=== PATIENT | female | born 1965 | race Caucasian/White ===

== ENCOUNTER → 2018-06-03 15:44 | Outpatient (CLI) | payer OTHER, SELFPAY | PROVIDERS: Family Provider Physician Assistant; PCP Physician Assistant; Visit Provider Physician Assistant | DX: J02.9 Acute pharyngitis, unspecified (principal) | CPT/HCPCS: 87070 ==

== ENCOUNTER 2018-06-14 13:48 | Emergency (ER) | payer OTHER, SELFPAY ==
[2018-06-14 13:55] VITALS: BP 148/92; PULSE 71; RESP 24; TEMP 36.4; O2SAT 98
--- NOTE | 2018-06-14 14:12 | DI.RAD.S_ITS ---
PROCEDURE: XR CHEST 2V INDICATIONS: short of breath TECHNIQUE: 2 views of the chest were acquired. COMPARISON: [facility], , CHEST 2 VIEW, 08/08/2015, 13:20. FINDINGS: Surgical changes and devices: None. Lungs and pleura: No pleural effusions or pneumothorax. Lungs are clear. Mediastinum: Mediastinal contours are normal. Heart size is normal. Bones and chest wall: No suspicious bony abnormalities. Soft tissues appear unremarkable. IMPRESSION: No acute cardiopulmonary pathology. Dictated by: Nacho Montano M.D. on 06/14/2018 at 14:34 Approved by: Nacho Montano M.D. on 06/14/2018 at 14:35
--- NOTE | 2018-06-14 14:29 | ED.SOB ---
HPI - SOB/Dyspnea General Chief Complaint: Shortness of Breath/Dyspnea Stated Complaint: SOB, fatigue Time Seen by Provider: 06/14/18 13:54 Source: patient Mode of arrival: ambulatory Limitations: no limitations History of Present Illness patient is a 52-year-old female who presents with shortness of breath. She says she has had increasing shortness of breath with exertion ongoing for the last couple of weeks. Over the last 3 days she says she does has overall body aches and fatigue. She can't get warm she feels like she is chilled. She has a little dizzy and lightheaded when she stands. She has a dry nonproductive cough. She was treated for pharyngitis with amoxicillin and azithromycin about 2 months ago. She had a little bit diarrhea after that but she is with diarrhea his overall stop. As he still has it occasionally it is nonbloody not watery and not daily. She denies nausea or vomiting. She does have some ongoing abdominal discomfort but nothing worse that she has had before. MD Complaint: shortness of breath Context: recent illness Severity: moderate Consistency/Duration: constant Relieving factors: rest Exacerbating factors: exertion Related Data Home Medications Medication Instructions Recorded Confirmed [MULTIVITAMIN] PO QDAY #0 06/09/12 06/03/18 [FISH OIL ] 1,400 mg PO QDAY #0 07/30/12 06/03/18 Lidocaine 5% See Label Instructions .ROUTE 03/09/18 06/03/18 .COMPLEX Previous Rx's Medication Instructions Recorded [BI-EST] 1 ml TOPICAL Q DAY #1 ea 02/28/17 hydrocodone 10 mg-acetaminophen 1 tab PO Q6H #120 tab 05/04/18 325 mg tablet thyroid (pork) 90 mg tablet See Label Instructions PO QDAY #0 05/04/18 tab azithromycin 500 mg tablet See Label Instructions PO .COMPLEX 06/03/18 #3 tab omega-3 acid ethyl esters 1 gram 1 cap PO DAILY #90 cap 06/03/18 capsule varicella-zoster glycoE [id number] 50 mcg IM ONCE #1 each 06/03/18 adj(PF) 50 mcg/0.5 mL IM susp, kit Allergies Allergy/AdvReac Type Severity Reaction Status Date / Time amoxicillin [From Augmentin] AdvReac Intermediate Diarrhea Verified 06/03/18 15:33 clavulanic acid AdvReac Intermediate Diarrhea Verified 06/03/18 15:33 [From Augmentin] Review of Systems Review of Systems All systems reviewed & are unremarkable except as noted in HPI and below Eyes Denies change in vision, Denies eye discharge, Denies irritation and Denies loss of vision Cardiovascular Denies chest pain, Denies irregular heart rhythm, Denies lightheadedness, Denies palpitations, Reports dyspnea and Denies orthopnea Respiratory Reports as per HPI, Reports dyspnea and Denies wheezing Gastrointestinal Gastrointestinal: Denies abdominal pain, Denies change in bowel habits, Denies diarrhea, Denies nausea and Denies vomiting Musculoskeletal Denies back pain, Denies muscle weakness, Denies numbness and Denies tingling Integumentary/Breasts Denies pruritus, Denies erythema, Denies rash and Denies wounds Neurologic Denies loss of vision, Denies numbness and Denies tingling Endocrine Denies palpitations Allergic/Immunologic Denies wheezing [facility] Medical History Hypothyroidism (Chronic 01/13/04) Blindness of one 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) Mixed hyperlipidemia (Chronic 04/16/16) Blind right eye (Chronic Unknown) Chronic constipation (Chronic Unknown) Chronic pelvic pain syndrome in female (Chronic Unknown) Hyperlipemia (Chronic Unknown) Hypothyroidism (Chronic Unknown) Hx of endometriosis (Resolved Unknown) Surgical History Hx of eye surgery (Resolved Unknown) Panora's bands (Resolved Unknown) History of thyroidectomy S/P total abdominal hysterectomy and bilateral salpingo-oophorectomy Status post breast reduction Status post laparoscopy Status post rotator cuff repair Family History Sister History of breast cancer Social History Smoking Status: Never smoker alcohol intake: current (Socially) substance use type: does not use Exam Initial Vital Signs Initial Vital Signs: Vital Signs Temperature 97.6 F 06/14/18 13:55 Pulse Rate 71 06/14/18 13:55 Respiratory Rate 24 06/14/18 13:55 Blood Pressure 148/92 H 06/14/18 13:55 Pulse Oximetry 98 06/14/18 13:55 GENERAL: Well-appearing, well-nourished and in no acute distress. Does not appear pale HEENT: Head atraumatic,EOMI, pupils reactive, face symmetric CARDIOVASCULAR: Regular rate and rhythm without murmurs, rubs or gallops. RESPIRATORY: Breath sounds equal bilaterally, no wheezes rales or rhonchi. ABDOMEN: Soft, nontender. Normoactive bowel sounds all 4 quadrants. No guarding or rebound. EXTREMITIES: Normal range of motion, no clubbing or edema. Neurovascularly intact NEUROLOGICAL: Alert and oriented x4.Normal gait and speech. Cranial nerves II through XII grossly intact. SKIN: Warm, dry, no laceration, no petechiae, no rashes or lesions. Scores PERC Score Age greater than or equal to 50 years: Yes Heart rate greater than or equal to 100 bpm: No Room Air O2 Sat less than 95%: No Unilateral leg swelling: No Recent trauma or surgery: No Hemoptysis: No Prior PE or DVT: No Hormone Use: No Total PERC Score: 1 Course Orders Ordered: ED Orders 06/14/18 14:11 Consult to Respiratory Therapy Evaluate & Treat 06/14/18 14:12 XR chest 2V Stat 06/14/18 14:20 B Type Natriuretic Peptide Stat Complete Blood Count AUTO DIFF Stat Comprehensive Metabolic Panel Stat Partial Thromboplastin Time Stat Prothrombin Time INR Stat Troponin & CK Cardiac Panel Stat 06/14/18 14:31 D Dimer Stat 06/14/18 14:48 Lactate (Lactic Acid) Stat 06/14/18 14:59 Blood Culture Stat 06/14/18 15:10 Influenza A and B by PCR Rapid Stat Discontinued Medications Albuterol (Ventolin Hfa) 2 puff INH NOW ONE Stop: 06/14/18 15:46 Last Admin: 06/14/18 16:37 Dose: 2 inhalation Vital Signs - 8 hr 06/14/18 13:55 06/14/18 16:09 Temperature 97.6 F 99.0 F Pulse Rate 71 66 Respiratory Rate 24 18 Blood Pressure 148/92 H Blood Pressure [Left Arm] 123/71 Pulse Oximetry 98 96 MDM - SOB/Dyspnea Lab Data Attestation: I reviewed the patient's lab results. Result diagrams: 06/14/18 14:20 06/14/18 14:20 Lab Results 12/16/18 12/16/18 12/16/18 Range/Units 14:20 14:20 14:20 WBC 11.2 H (4.5-11.0) X10^3/uL RBC 5.19 (4.0-5.2) X10^6/uL Hgb 15.7 (12.0-16.0) g/dL Hct 45.5 (36-46) % MCV 87.7 (80-100) fL MCH 30.3 (26-34) PG MCHC 34.5 (30-36) % RDW 12.0 (11.6-14.8) % Plt Count 405 H (150-400) X10^3/uL Neut % (Auto) 60.5 (50-75) % Lymph % (Auto) 27.9 (25-40) % [place] % (Auto) 8.8 (3-14) % Eos % (Auto) 1.8 L (2-4) % Baso % (Auto) 1.0 (0-2) % Neut # (Auto) 6700 (4585-4695) /uL PT 10.9 (10.1-12.7) SECONDS INR 1.0 (0.9-1.3) APTT 32 (26.4-36.2) SECONDS D-Dimer (<230) ng/mL Sodium 142 (137-145) mmol/L Potassium 4.0 (3.4-5.1) mmol/L Chloride 101 (98-107) mmol/L Carbon Dioxide 22 (22-32) mmol/L BUN 11 (7-17) mg/dL Creatinine 0.80 (0.52-1.04) mg/dL Estimated GFR > 60.0 (>60) mL/min BUN/Creatinine Ratio 13.8 (6-22) Glucose 80 (70-100) mg/dL Lactate (0.7-2.1) mmol/L Calcium 10.2 (8.4-10.2) mg/dL Total Bilirubin 1.2 (0.2-1.3) mg/dL AST 34 (14-36) IU/L ALT 40 (9-52) IU/L Alkaline Phosphatase 57 (38-126) U/L Total Creatine Kinase 60 (30-135) U/L CK-MB (CK-2) TNP CK-MB (CK-2) Rel Index TNP Troponin I < 0.012 (0.01-0.034) ng/mL B-Natriuretic Peptide 35.6 (<100) Total Protein 8.7 H (6.3-8.2) g/dL Albumin 4.9 (3.5-5.0) g/dL Globulin 3.8 (1.7-4.1) g/dL Albumin/Globulin Ratio 1.3 (1.0-2.8) Influenza A & B (PCR) (Negative) 06/14/18 06/14/18 06/14/18 Range/Units 14:31 14:48 15:10 WBC (4.5-11.0) X10^3/uL RBC (4.0-5.2) X10^6/uL Hgb (12.0-16.0) g/dL Hct (36-46) % MCV (80-100) fL MCH (26-34) PG MCHC (30-36) % RDW (11.6-14.8) % Plt Count (150-400) X10^3/uL Neut % (Auto) (50-75) % Lymph % (Auto) (25-40) % [place] % (Auto) (3-14) % Eos % (Auto) (2-4) % Baso % (Auto) (0-2) % Neut # (Auto) (0029-4814) /uL PT (10.1-12.7) SECONDS INR (0.9-1.3) APTT (26.4-36.2) SECONDS D-Dimer < 200 (<230) ng/mL Sodium (137-145) mmol/L Potassium (3.4-5.1) mmol/L Chloride (98-107) mmol/L Carbon Dioxide (22-32) mmol/L BUN (7-17) mg/dL Creatinine (0.52-1.04) mg/dL Estimated GFR (>60) mL/min BUN/Creatinine Ratio (6-22) Glucose (70-100) mg/dL Lactate 1.3 (0.7-2.1) mmol/L Calcium (8.4-10.2) mg/dL Total Bilirubin (0.2-1.3) mg/dL AST (14-36) IU/L ALT (9-52) IU/L Alkaline Phosphatase (38-126) U/L Total Creatine Kinase (30-135) U/L CK-MB (CK-2) CK-MB (CK-2) Rel Index Troponin I (0.01-0.034) ng/mL B-Natriuretic Peptide (<100) Total Protein (6.3-8.2) g/dL Albumin (3.5-5.0) g/dL Globulin (1.7-4.1) g/dL Albumin/Globulin Ratio (1.0-2.8) Influenza A & B (PCR) Negative (Negative) Urine Dip Bedside Urine Glucose Negative Bedside Urine Bilirubin - Negative Bedside Urine Ketone - Negative Urine Specific [place] 1.020 Bedside Urine Occult Blood - Negative Bedside Urine pH 6.0 Bedside Urine Protein - Negative Bedside Urine Urobilinogen - Negative Bedside Urine Nitrite - Negative Bedside Urine Leukocytes - Negative Esterase Imaging Data Chest x-ray: Attestation: I personally reviewed and interpreted this imaging study as follows: My impression: negative Radiologist's impression: PROCEDURE: XR CHEST 2V INDICATIONS: short of breath TECHNIQUE: 2 views of the chest were acquired. COMPARISON: [facility], CHEST 2 VIEW, 08/08/2015, 13:20. FINDINGS: Surgical changes and devices: None. Lungs and pleura: No pleural effusions or pneumothorax. Lungs are clear. Mediastinum: Mediastinal contours are normal. Heart size is normal. Bones and chest wall: No suspicious bony abnormalities. Soft tissues appear unremarkable. IMPRESSION: No acute cardiopulmonary pathology. Dictated by: Nacho Montano M.D. on 06/14/2018 at 14:34 ECG Data Attestation: I personally reviewed and interpreted this ECG as follows: Prior ECG tracings: not available for review Interpretation: Normal sinus rhythm rate [address] changes no T-wave inversions MDM Narrative Medical decision making narrative: Patient is not hypoxic low risk for PE. D-dimer negative. Shortness of breath with exertion possible bronchospasm. Also she was treated twice for likely a viral pharyngitis. Possibly left over viral syndrome. She is not appear toxic she is not requiring oxygen. She is not dyspneic. She did get albuterol and spacer teaching. At this time no cause of hypoxia found recommend outpatient follow-up. Discharge Plan Departure Patient Disposition: Home Clinical Impression: Acute viral syndrome Discharge Date/Time: 06/14/18 16:51 Interventions: ED Discharge Assessment Last Done: 06/14/18 16:51 Instructions: DI for Viral Syndrome Activity Restrictions/Additional Instructions: *You have been diagnosed with viral syndrome *What to do: At this time blood work is reassuring no need for antibiotics chest x-ray does not show any pneumonia influenza is negative. Urine not anemic. Recommend rest and hydrating. *Continue to take medications as directed Albuterol 1-2 puffs every 4 hr if needed for shortness of breath use with spacer *Follow up with your primary care provider in 2-3 days *Return to ER if you should have increasing shortness of breath, chest tightness or any new, worsening or concerning symptoms Prescriptions: No Action Lidocaine 5% ointment See Patient Comments .ROUTE .COMPLEX RF: 0 omega-3 acid ethyl esters [Lovaza] 1 gram capsule 1 cap PO DAILY Qty: 90 RF: 3 varicella-zoster [id number] (PF) [Shingrix (PF)] 50 mcg/0.5 mL suspension for reconstitution 50 mcg IM ONCE Qty: 1 RF: 1 azithromycin 500 mg tablet See Label Instructions PO .COMPLEX Qty: 3 RF: 0 [MULTIVITAMIN] PO QDAY Qty: 0 RF: 0 [FISH OIL ] 1,400 mg PO QDAY Qty: 0 RF: 0 [BI-EST] 1 ml Topical Q DAY Qty: 1 RF: 11 thyroid (pork) [[place] Thyroid] 90 mg tablet See Label Instructions PO QDAY Qty: 0 RF: 1 hydrocodone-acetaminophen 10-325 mg tablet 1 tab PO Q6H Qty: 120 RF: 0 Referrals: Aparna Huber PA-C [Primary Care Provider] -
[2018-06-14 14:38] LABS: Add Manual Diff / Slide Review NO; Eosinophils Percent Auto 1.8 % (2-4); Hematocrit 45.5 % (36-46); Hemoglobin 15.7 g/dL (12.0-16.0); Lymphocytes Percent Auto 27.9 % (25-40); Mean Corpuscular HGB Conc 34.5 % (30-36); Mean Corpuscular Hemoglobin 30.3 PG (26-34); Mean Corpuscular Volume 87.7 fL (80-100); Monocytes Percent Auto 8.8 % (3-14); Neutrophils Absolute Auto 6700 /uL (1500-7000); Neutrophils Percent Auto 60.5 % (50-75); Platelet Count 405 X10^3/uL (150-400); Prothrombin Time 10.9 SECONDS (10.1-12.7); Red Blood Cell Count 5.19 X10^6/uL (4.0-5.2); White Blood Cell Count 11.2 X10^3/uL (4.5-11.0)
[2018-06-14 14:40] LABS: PTT Partial Thromboplastin Tim 32 SECONDS (26.4-36.2)
[2018-06-14 14:48] LABS: Alanine Aminotransferase 40 IU/L (9-52); Albumin 4.9 g/dL (3.5-5.0); Albumin Globulin Ratio 1.3 (1.0-2.8); Alkaline Phosphatase 57 U/L (38-126); Aspartate Aminotransferase 34 IU/L (14-36); BUN Creatinine Ratio 13.8 (6-22); Bilirubin Total 1.2 mg/dL (0.2-1.3); Blood Urea Nitrogen 11 mg/dL (7-17); Calcium 10.2 mg/dL (8.4-10.2); Carbon Dioxide 22 mmol/L (22-32); Chloride 101 mmol/L (98-107); Creatine Kinase 60 U/L (30-135); Estimated Glomerular Filt Rate > 60.0 mL/min (>60); Globulin 3.8 g/dL (1.7-4.1); Glucose 80 mg/dL (70-100); HEMOLYSIS < 15 (0-50); Sodium 142 mmol/L (137-145); Total Protein 8.7 g/dL (6.3-8.2)
[2018-06-14 14:49] LABS: D Dimer < 200 ng/mL (<230)
[2018-06-14 14:58] LABS: B Type Natriuretic Peptide 35.6 (<100)
[2018-06-14 15:00] LABS: Troponin I < 0.012 ng/mL (0.01-0.034)
[2018-06-14 15:09] LABS: Lactate (Lactic Acid) 1.3 mmol/L (0.7-2.1)
[2018-06-14 15:36] LABS: Influenza A and B by PCR Rapid Negative (Negative)
[2018-06-14 16:09] VITALS: BP 123/71; PULSE 66; RESP 18; TEMP 37.2; O2SAT 96
[2018-06-14] MEDS: ALBUTEROL HFA 60 PUFF/8 GM INH INH (16:37)
== END 2018-06-14 16:51 | disposition home or self-care (01) ==
PROVIDERS: Emergency Provider Emergency Medicine; Family Provider Physician Assistant; PCP Physician Assistant
DX: B34.9 Viral infection, unspecified (principal)
CPT/HCPCS: 36415; 36591; 71046; 80053; 81003; 82550; 83605; 83880; 84484; 85025; 85379; 85610; 85730; 87040; 87400; 93005; 99283; 99285

== ENCOUNTER → 2018-06-17 14:20 | Outpatient (CLI) | payer OTHER, SELFPAY ==
[2018-06-17 14:48] LABS: Monotest Negative (Negative)
== END ==
PROVIDERS: Family Provider Physician Assistant; PCP Physician Assistant; Visit Provider Physician Assistant
DX: R05 Cough (principal); R53.83 Other fatigue
CPT/HCPCS: 36415; 86318

== ENCOUNTER → 2023-04-28 12:25 | Outpatient (CLI) | payer OTHER, SELFPAY ==
--- NOTE | 2023-04-28 12:27 | DI.RAD.S_ITS ---
PROCEDURE: XR FOOT LT MIN 3V INDICATIONS: Left heel tender/pain stepped on rock 5wk HOME SPECIALIST TECHNIQUE: 3 views of the foot were acquired. COMPARISON: None. FINDINGS: Bones: No fractures or dislocations. No suspicious bony lesions. 1st MTP degenerative change. Plantar calcaneal spur. Soft tissues: No tibiotalar joint effusion. Achilles tendon appears normal. IMPRESSION: No acute bony abnormality. Dictated by: Ezra Reece M.D. on 04/28/2023 at 12:58 Approved by: Ezra Reece M.D. on 04/28/2023 at 13:03
== END ==
PROVIDERS: Family Provider Physician Assistant; PCP Physician Assistant; Referring Provider Student in an Organized Health Care Education/Training Program; Visit Provider Student in an Organized Health Care Education/Training Program
DX: M79.672 Pain in left foot (principal)
CPT/HCPCS: 73630

== ENCOUNTER 2023-07-28 16:47 | Emergency (ER) | payer OTHER, SELFPAY ==
[2023-07-28 16:59] VITALS: BP 131/88; PULSE 96; RESP 22; TEMP 36.1; O2SAT 98; BMI 27.3
[2023-07-28] MEDS: ONDANSETRON 4 MG/2 ML INJ IV ×2 (17:17→21:08)
[2023-07-28 17:25] LABS: Add Manual Diff / Slide Review NO; Basophils Absolute Auto 100 /uL (0-100); Basophils Percent Auto 0.9 % (0-2); Eosinophils Absolute Auto 200 /uL (0-450); Eosinophils Percent Auto 1.9 % (2-4); Hematocrit 47.5 % (36-46); Hemoglobin 16.2 g/dL (12.0-16.0); Lymphocytes Absolute Auto 2800 /uL (1100-4500); Lymphocytes Percent Auto 30.6 % (25-40); Mean Corpuscular HGB Conc 34.1 % (30-36); Mean Corpuscular Hemoglobin 29.9 PG (26-34); Mean Corpuscular Volume 87.6 fL (80-100); Monocytes Absolute Auto 1000 /uL (0-900); Monocytes Percent Auto 10.9 % (3-14); Neutrophils Absolute Auto 5100 /uL (1500-7000); Neutrophils Percent Auto 55.7 % (50-75); Platelet Count 428 X10^3/uL (150-400); Red Blood Cell Count 5.42 X10^6/uL (4.0-5.2); Red Cell Distribution Width 13.1 % (11.6-14.8); White Blood Cell Count 9.1 X10^3/uL (4.5-11.0)
[2023-07-28 17:32] LABS: Alanine Aminotransferase 62 IU/L (<35); Albumin 4.9 g/dL (3.5-5.0); Albumin Globulin Ratio 1.3 (1.0-2.8); Alkaline Phosphatase 102 U/L (38-126); Aspartate Aminotransferase 55 IU/L (14-36); BUN Creatinine Ratio 14.7 (6-22); Bilirubin Total 1.3 mg/dL (0.2-1.3); Blood Urea Nitrogen 15 mg/dL (7-17); Calcium 10.7 mg/dL (8.4-10.2); Carbon Dioxide 27 mmol/L (22-32); Chloride 100 mmol/L (98-107); Estimated Glomerular Filt Rate > 60 mL/min (>60); Globulin 3.8 g/dL (1.7-4.1); Glucose 102 mg/dL (70-100); HEMOLYSIS < 15 (0-50); Lipase 263 U/L (23-300); Potassium 3.6 mmol/L (3.4-5.1); Sodium 138 mmol/L (137-145); Total Protein 8.7 g/dL (6.3-8.2)
[2023-07-28 18:07] LABS: Urine Volume 10mL (spun)
[2023-07-28 18:08] LABS: Bacteria Urine Moderate (10-30); RBC Urine 0-1/HPF (0-5/HPF); Squamous Epithelial Cell Urine 1-5 /HPF (0-5/HPF); WBC Urine 5-10/HPF (0-5/HPF)
--- NOTE | 2023-07-28 22:42 | DI.CT.S_ITS ---
PROCEDURE: CT ABDOMEN PELVIS W CON INDICATIONS: nausea/pain x 5 weeks, hx malrotation? TECHNIQUE: After the administration of intravenous contrast, axial sections acquired from the lung bases to the pubic symphysis. Coronal and sagittal reformats were performed. For radiation dose reduction, the following was used: automated exposure control, adjustment of mA and/or kV according to patient size. COMPARISON: [facility], CT, ABDOMEN/PELVIS WITH CONTRAST, 01/20/2017, 10:57. FINDINGS: Image quality: Diagnostic. Lower Chest: Small hiatal hernia. ABDOMEN: Liver: No solid mass. Hepatic steatosis. Gallbladder: No radiopaque gallstones or wall thickening. Biliary ducts: No biliary dilation. Pancreas: No ductal dilation. Spleen: Size is within normal limits. Adrenal Glands: No adrenal nodules. Kidneys and Ureters: No hydronephrosis. No solid mass. No complex renal cystic lesion which requires follow up. Stomach and Bowel: Normal colonic caliber, without significant wall thickening. The duodenum does not cross midline, consistent with malrotation. No volvulus. Additionally, there is no small bowel in the left abdomen. Peritoneum: No abnormal intraperitoneal fluid. No free air. Ventral Wall: No hernia. Abdominal Nodes: No retroperitoneal or mesenteric adenopathy by size criteria. Vessels: Aorta and inferior vena cava are normal in size. PELVIS: Pelvic Organs: Unremarkable. Bladder: Unremarkable. Pelvic Nodes: No enlarged lymph nodes. Miscellaneous: No inguinal hernias are seen. Bones: No aggressive osseous abnormality. IMPRESSION: Malrotation without volvulus. Moderate hepatic steatosis. Dictated by: Kulwant Hughes M.D. on 07/28/2023 at 23:08 Approved by: Kulwant Hughes M.D. on 07/28/2023 at 23:10
[2023-07-28 23:00] VITALS: BP 157/70; PULSE 66; O2SAT 98
[2023-07-28] MEDS: SODIUM CHLORIDE 0.9% 1,000 ML 1000 ML IV (23:01)
--- NOTE | 2023-07-28 23:04 | ED.ABDPAIN ---
HPI - Abdominal Pain General Chief Complaint: Abdominal Pain Stated Complaint: N/Abd bloating Time Seen by Provider: 07/28/23 22:37 Source: patient Mode of arrival: Ambulatory History of Present Illness HPI narrative: Patient is a 57-year-old female history of multiple abdominal surgeries, thyroid, chronic right eye issue, presents today with ongoing abdominal discomfort and nausea. She reports it has been going on about month. She has a history of some sort of malrotated gut. She reports that she is feeling more constipated lately but is still passing gas. She is significant decrease in appetite but has not really lost any weight. She is staying hydrated. No fever chills chest pain or passing out. Related Data Home Medications Medication Instructions Recorded Confirmed [MULTIVITAMIN] PO QDAY ##0 06/09/12 07/06/23 estradiol 10 mcg vaginal tablet 10 mcg vaginal 2XW 07/01/18 07/06/23 (Yuvafem) norethindrone acetate 5 mg tablet 5 mg PO DAILY 07/01/18 07/06/23 Previous Rx's Medication Instructions Recorded omega-3 acid ethyl esters 1 gram 1 cap PO DAILY #90 caps 06/03/18 capsule (Lovaza) thyroid (pork) 90 mg tablet 90 mg PO QDAY #45 tabs 01/14/19 ([place] Thyroid) ondansetron 4 mg disintegrating 4 mg PO Q6H PRN nausea and 07/06/23 tablet vomiting #10 tabs ondansetron 4 mg disintegrating 4 mg PO Q8H PRN nausea and 07/28/23 tablet vomiting #20 tabs Allergies Allergy/AdvReac Type Severity Reaction Status Date / Time amoxicillin [From Augmentin] AdvReac Intermediate Diarrhea Verified 07/06/23 10:33 clavulanic acid AdvReac Intermediate Diarrhea Verified 07/06/23 10:33 [From Augmentin] Review of Systems Review of Systems ROS Unobtainable: All systems reviewed & are unremarkable except as noted in HPI and below Patient History Medical History (Updated 07/28/23 @ 23:35 by Olga Harris DO) Chronic constipation (Unknown) Blind right eye (Unknown) Hyperlipemia (Unknown) Hypothyroidism (Unknown) Chronic pelvic pain syndrome in female (Unknown) Hx of endometriosis (Unknown) Mixed hyperlipidemia (04/16/16) Blindness of one eye (11/13/10) Hypothyroidism (01/13/04) Surgical History Kaveh's bands (Unknown) Hx of eye surgery (Unknown) Status post rotator cuff repair Status post laparoscopy Status post breast reduction S/P total abdominal hysterectomy and bilateral salpingo-oophorectomy History of thyroidectomy Family History Sister History of breast cancer Social History Smoking Status: Never smoker second hand exposure: No alcohol intake: current substance use type: does not use Smoking Status: Never smoker alcohol intake frequency: holidays/special occasions only Substance Use Type: does not use and marijuana Exam Initial Vital Signs Initial Vital Signs: Vital Signs Temperature 97 F L 07/28/23 16:59 Pulse Rate 96 H 07/28/23 16:59 Respiratory Rate 22 07/28/23 16:59 Blood Pressure 131/88 07/28/23 16:59 Pulse Oximetry 98 07/28/23 16:59 Oxygen Delivery Method Room Air 07/28/23 16:59 GENERAL: Alert 49-year-old female HEENT: Head atraumatic,EOMI, pupils reactive, face symmetric, moist mucous membranes CARDIOVASCULAR: Regular rate and rhythm without murmurs, rubs or gallops. RESPIRATORY: Breath sounds equal bilaterally, no wheezes rales or rhonchi. ABDOMEN: Soft, nontender. Normoactive bowel sounds all 4 quadrants. No guarding or rebound. EXTREMITIES: Normal range of motion, no clubbing or edema. Neurovascularly intact NEUROLOGICAL: Alert and oriented x4.Normal gait and speech. SKIN: Warm, dry, no laceration, no petechiae, no rashes or lesions. Course Orders Ordered: ED Orders 07/28/23 22:42 CT abdomen pelvis w con Stat Discontinued Medications Sodium Chloride (Normal Saline 0.9%) 1,000 mls @ 1,000 mls/hr IV BOLUS ONE Stop: 07/28/23 23:41 Last Admin: 07/28/23 23:01 Dose: 1,000 mls/hr Documented By: DOROTHY Ondansetron HCl (Ondansetron 4 Mg/2 Ml Inj) 4 mg IV NOW PRN PRN Reason: Nausea And Vomiting Last Admin: 07/28/23 17:17 Dose: 4 mg Documented By: ADELE Ondansetron HCl (Ondansetron 4 Mg Odt) 4 mg PO NOW PRN PRN Reason: Nausea And Vomiting Ondansetron HCl (Ondansetron 4 Mg/2 Ml Inj) 4 mg IV NOW ONE Stop: 07/28/23 21:05 Last Admin: 07/28/23 21:08 Dose: 4 mg Documented By: DOROTHY Vital Signs Vital signs: Vital Signs - 8 hr 07/28/23 23:00 07/28/23 23:00 07/28/23 23:30 Pulse Rate 66 69 Blood Pressure 157/70 H 140/68 Pulse Oximetry 98 97 MDM - Abdominal Pain Lab Data 07/28/23 17:13 07/28/23 17:13 Labs: Lab Results 07/28/23 07/28/23 Range/Units 17:13 17:47 WBC 9.1 (4.5-11.0) X10^3/uL RBC 5.42 H (4.0-5.2) X10^6/uL Hgb 16.2 H (12.0-16.0) g/dL Hct 47.5 H (36-46) % MCV 87.6 (80-100) fL MCH 29.9 (26-34) PG MCHC 34.1 (30-36) % RDW 13.1 (11.6-14.8) % Plt Count 428 H (150-400) X10^3/uL Neut % (Auto) 55.7 (50-75) % Lymph % (Auto) 30.6 (25-40) % [place] % (Auto) 10.9 (3-14) % Eos % (Auto) 1.9 L (2-4) % Baso % (Auto) 0.9 (0-2) % Neut # (Auto) 5100 (1233-1148) /uL Lymph # (Auto) 2800 (8945-3319) /uL [place] # (Auto) 1000 H (0-900) /uL Eos # (Auto) 200 (0-450) /uL Baso # (Auto) 100 (0-100) /uL Sodium 138 (137-145) mmol/L Potassium 3.6 (3.4-5.1) mmol/L Chloride 100 (98-107) mmol/L Carbon Dioxide 27 (22-32) mmol/L BUN 15 (7-17) mg/dL Creatinine 1.02 (0.52-1.04) mg/dL Estimated GFR > 60 (>60) mL/min BUN/Creatinine Ratio 14.7 (6-22) Glucose 102 H (70-100) mg/dL Calcium 10.7 H (8.4-10.2) mg/dL Total Bilirubin 1.3 (0.2-1.3) mg/dL AST 55 H (14-36) IU/L ALT 62 H (<35) IU/L Alkaline Phosphatase 102 (38-126) U/L Total Protein 8.7 H (6.3-8.2) g/dL Albumin 4.9 (3.5-5.0) g/dL Globulin 3.8 (1.7-4.1) g/dL Albumin/Globulin Ratio 1.3 (1.0-2.8) Lipase 263 (23-300) U/L Urine RBC 0-1/hpf (0-5/HPF) Urine WBC 5-10/hpf H (0-5/HPF) Ur Squamous Epith Cells 1-5 /hpf (0-5/HPF) Urine Bacteria Moderate (10-30) H (None) Vol Urine Centrifuged 10ml (spun) Point of care testing: Urine Dip Bedside Urine Glucose Negative Bedside Urine Bilirubin - Negative Bedside Urine Ketone - Negative Urine Specific [place] 1.020 Bedside Urine Occult Blood - Negative Bedside Urine pH 6.0 Bedside Urine Protein - Negative Bedside Urine Urobilinogen - Negative Bedside Urine Nitrite - Negative Bedside Urine Leukocytes +/- [address] scan - abdomen/pelvis: Radiologist's Impression: Malrotation without evidence of volvulus [facility] Narrative Medical decision making narrative: Patient 57-year-old female history of malrotation presenting today with ongoing abdominal pain and nausea. She has been feeling constipated. Blood work has been reviewed hemoglobin 16.2 hematocrit 47.5, sodium 138, potassium 3.6, chloride 100, carbon dioxide 25, BUN 15, creatinine 1.0 glucose 102, AST 55, ALT 62, bilirubin [address] does not show any cause of nausea or does Patient does seem to be dehydrated slightly hemoconcentrated with an elevated hemoglobin and hematocrit. No significant electrolyte abnormalities or DAXA. She is tolerating some fluids. She has given a L of IV fluids here in the ED. At this time unknown what is causing her abdominal pain and nausea. No need for further workup or admission Discharge Plan Departure Patient Disposition: Home Clinical Impression: Abdominal pain Instructions: Acute Abdominal Pain Activity Restrictions/Additional Instructions: *You have been diagnosed with abdominal *What to do: At this time CT and blood work are overall reassuring. I do recommend that you have further workup with your primary care provider *Continue to take medications as directed Zofran 4 mg every 8 hours if needed for nausea or vomiting *Follow up with your primary care provider in 2-3 days or call [phone] *Return to ER if you should have increasing pain nausea vomiting [or] any new, worsening or concerning symptoms Prescriptions: New ondansetron 4 mg tablet,disintegrating 4 mg PO Q8H PRN (Reason: nausea and vomiting) Qty: 20 0RF No Action ondansetron 4 mg tablet,disintegrating 4 mg PO Q6H PRN (Reason: nausea and vomiting) Qty: 10 0RF omega-3 acid ethyl esters [Lovaza] 1 gram capsule 1 cap PO DAILY Qty: 90 3RF estradiol [Yuvafem] 10 mcg tablet 10 mcg VAG 2XW norethindrone acetate 5 mg tablet 5 mg PO DAILY [MULTIVITAMIN] PO QDAY Qty: 0 thyroid (pork) [[place] Thyroid] 90 mg tablet 90 mg PO QDAY Qty: 45 0RF Rx Instructions: Take one and a half tabs daily Referrals: [facility] [Provider Group] Miscellaneous,Doctor, [Primary Care Provider] - Stand Alone Forms: Patient Portal/API
[2023-07-28 23:30] VITALS: BP 140/68; PULSE 69; O2SAT 97
== END 2023-07-28 23:45 | disposition home or self-care (01) ==
PROVIDERS: Emergency Medicine; Emergency Provider Emergency Medicine; Family Provider Physician Assistant
DX: R10.9 Unspecified abdominal pain (principal); E86.0 Dehydration; R79.89 Other specified abnormal findings of blood chemistry
CPT/HCPCS: 36415; 74177; 80053; 81003; 81015; 83690; 85025; 96361; 96374; 96376; 99284; J2405; Q9967

== ENCOUNTER 2023-10-14 14:56 | Emergency (ER) | payer OTHER, SELFPAY ==
[2023-10-14 15:03] VITALS: BP 138/90; PULSE 78; RESP 18; TEMP 36.7; O2SAT 100; BMI 25.9
[2023-10-14 15:13] VITALS: BMI 25.9
[2023-10-14] MEDS: SODIUM CHLORIDE 0.9% 1,000 ML 1000 ML IV (15:27)
[2023-10-14] MEDS: ONDANSETRON 4 MG/2 ML INJ IV (15:28)
[2023-10-14 15:42] LABS: Add Manual Diff / Slide Review NO; Basophils Absolute Auto 100 /uL (0-100); Basophils Percent Auto 0.9 % (0-2); Eosinophils Absolute Auto 100 /uL (0-450); Eosinophils Percent Auto 1.7 % (2-4); Hematocrit 49.6 % (36-46); Lymphocytes Absolute Auto 2100 /uL (1100-4500); Lymphocytes Percent Auto 24.9 % (25-40); Mean Corpuscular HGB Conc 34.3 % (30-36); Mean Corpuscular Hemoglobin 29.7 PG (26-34); Mean Corpuscular Volume 86.6 fL (80-100); Monocytes Absolute Auto 900 /uL (0-900); Monocytes Percent Auto 11.3 % (3-14); Neutrophils Absolute Auto 5100 /uL (1500-7000); Neutrophils Percent Auto 61.2 % (50-75); Platelet Count 390 X10^3/uL (150-400); Red Blood Cell Count 5.73 X10^6/uL (4.0-5.2); Red Cell Distribution Width 12.5 % (11.6-14.8); White Blood Cell Count 8.4 X10^3/uL (4.5-11.0)
[2023-10-14 15:54] LABS: Alanine Aminotransferase 65 IU/L (<35); Albumin 5.1 g/dL (3.5-5.0); Albumin Globulin Ratio 1.5 (1.0-2.8); Alkaline Phosphatase 108 U/L (38-126); Aspartate Aminotransferase 51 IU/L (14-36); BUN Creatinine Ratio 21.3 (6-22); Bilirubin Total 1.4 mg/dL (0.2-1.3); Blood Urea Nitrogen 17 mg/dL (7-17); Calcium 10.1 mg/dL (8.4-10.2); Carbon Dioxide 25 mmol/L (22-32); Chloride 107 mmol/L (98-107); Estimated Glomerular Filt Rate > 60 mL/min (>60); Globulin 3.3 g/dL (1.7-4.1); Glucose 93 mg/dL (70-100); HEMOLYSIS < 15 (0-50); Lipase 133 U/L (23-300); Potassium 3.7 mmol/L (3.4-5.1); Sodium 140 mmol/L (137-145); Total Protein 8.4 g/dL (6.3-8.2)
--- NOTE | 2023-10-14 16:27 | ED_ITS ---
HPI - Nausea/Vomiting/Diarrhea General Chief complaint: Nausea/Vomiting/Diarrhea Stated complaint: nausea, vomiting, fever Time Seen by Provider: 10/14/23 16:15 Source: patient Mode of arrival: Ambulatory History of Present Illness HPI Narrative: brought patient here for 3 weeks complaint of nausea vomiting chills abdominal discomfort. History of malrotation. Did have surgical intervention for release of bands. That was years ago. Currently not being followed by any general surgeon or continuous improvement coach. Patient seen here in June for the same complaint. CT imaging was done at that time. Has these episodes intermittently. No urinary complaints no back pain no chest pain Related Data Home Medications Medication Instructions Recorded Confirmed [MULTIVITAMIN] PO QDAY ##0 06/09/12 07/06/23 estradiol 10 mcg vaginal tablet 10 mcg vaginal 2XW 07/01/18 07/06/23 (Yuvafem) norethindrone acetate 5 mg tablet 5 mg PO DAILY 07/01/18 07/06/23 Previous Rx's Medication Instructions Recorded omega-3 acid ethyl esters 1 gram 1 cap PO DAILY #90 caps 06/03/18 capsule (Lovaza) thyroid (pork) 90 mg tablet 90 mg PO QDAY #45 tabs 01/14/19 ([place] Thyroid) ondansetron 4 mg disintegrating 4 mg PO Q6H PRN nausea and 07/06/23 tablet vomiting #10 tabs ondansetron 4 mg disintegrating 4 mg PO Q8H PRN nausea and 07/28/23 tablet vomiting #20 tabs ondansetron 4 mg disintegrating 4 mg PO Q8H PRN nausea and 10/14/23 tablet vomiting #20 tabs promethazine 25 mg rectal 25 mg VA Q6H PRN nausea and 10/14/23 suppository vomiting #12 ea Allergies Allergy/AdvReac Type Severity Reaction Status Date / Time amoxicillin [From Augmentin] AdvReac Intermediate Diarrhea Verified 10/14/23 18:06 clavulanic acid AdvReac Intermediate Diarrhea Verified 10/14/23 18:06 [From Augmentin] Review of Systems Review of Systems Narrative: GENERAL: negative chills, fatigue, malaise, fever, sweats. HEENT: negative sinus pain, ear pain, sore throat RESPIRATORY: negative dyspnea, cough CARDIOVASCULAR: negative chest pain, palpitations GASTROINTESTINAL: Positive nausea, vomiting, abdominal pain, negative bloody stool : negative dysuria, frequency, hematuria MUSCULOSKELETAL: negative muscle or bony pain SKIN: negative rash, skin lesions NEUROLOGIC: negative weakness, numbness ROS Unobtainable: All systems reviewed & are unremarkable except as noted in HPI and below Patient History Medical History (Updated 10/14/23 @ 18:02 by Jaylen Mccord MD) Chronic constipation (Unknown) Blind right eye (Unknown) Hyperlipemia (Unknown) Hypothyroidism (Unknown) Chronic pelvic pain syndrome in female (Unknown) Hx of endometriosis (Unknown) Mixed hyperlipidemia (04/16/16) Blindness of one eye (11/13/10) Hypothyroidism (01/13/04) Surgical History Kaveh's bands (Unknown) Hx of eye surgery (Unknown) Status post rotator cuff repair Status post laparoscopy Status post breast reduction S/P total abdominal hysterectomy and bilateral salpingo-oophorectomy History of thyroidectomy Family History Sister History of breast cancer Social History Smoking Status: Never smoker second hand exposure: No alcohol intake: current substance use type: does not use Smoking Status: Never smoker alcohol intake frequency: holidays/special occasions only Substance Use Type: marijuana Exam Narrative Exam Narrative: GENERAL: in no distress, not toxic not dyspneic HEAD: Normocephalic. EYES: Pupils equal round ENT: Mucous membranes moist. NECK: Trachea midline. CARDIOVASCULAR: Regular rate and rhythm RESPIRATORY: Clear to auscultation. Breath sounds equal bilaterally. No wheezes, rales, or rhonchi. GASTROINTESTINAL: Abdomen soft, mild diffuse tenderness no peritoneal signs no guarding no rebound no pain out of proportion to exam no peritoneal signs EXTREMITIES: No gross deformities. BACK: No flank tenderness. NEURO: AOx4. SKIN: Warm and dry PSYCH: Not anxious, is cooperative Initial Vital Signs Initial Vital Signs: Vital Signs Temperature 98.1 F 10/14/23 15:03 Pulse Rate 78 10/14/23 15:03 Respiratory Rate 18 10/14/23 15:03 Blood Pressure 138/90 10/14/23 15:03 Pulse Oximetry 100 10/14/23 15:03 Oxygen Delivery Method Room Air 10/14/23 15:03 Course Orders Ordered: Discontinued Medications Sodium Chloride (Normal Saline 0.9%) 1,000 mls @ 1,000 mls/hr IV BOLUS ONE Stop: 10/14/23 16:12 Last Infusion: 10/14/23 16:30 Dose: Infused Documented By: Admin: 10/14/23 15:27 Dose: 1,000 mls/hr Documented By: ANTONI Morphine Sulfate (Morphine 4 Mg/Ml Inj) 4 mg IV NOW ONE Stop: 10/14/23 16:27 Last Admin: 10/14/23 16:52 Dose: Not Given Documented By: PEPE Ondansetron HCl (Ondansetron 4 Mg/2 Ml Inj) 4 mg IV NOW PRN PRN Reason: Nausea And Vomiting Last Admin: 10/14/23 15:28 Dose: 4 mg Documented By: ANTONI Ondansetron HCl (Ondansetron 4 Mg Odt) 4 mg PO NOW PRN PRN Reason: Nausea And Vomiting Vital Signs Vital signs: Vital Signs - 8 hr 10/14/23 15:03 Temperature 98.1 F Pulse Rate 78 Respiratory Rate 18 Blood Pressure 138/90 Pulse Oximetry 100 Oxygen Delivery Method Room Air MDM - Nausea/Vomiting/Diarrhea Lab Data 10/14/23 15:20 10/14/23 15:20 Labs: Lab Results 10/14/23 10/14/23 Range/Units 15:20 17:25 WBC 8.4 (4.5-11.0) X10^3/uL RBC 5.73 H (4.0-5.2) X10^6/uL Hgb 17.0 H (12.0-16.0) g/dL Hct 49.6 H (36-46) % MCV 86.6 (80-100) fL MCH 29.7 (26-34) PG MCHC 34.3 (30-36) % RDW 12.5 (11.6-14.8) % Plt Count 390 (150-400) X10^3/uL Neut % (Auto) 61.2 (50-75) % Lymph % (Auto) 24.9 L (25-40) % [place] % (Auto) 11.3 (3-14) % Eos % (Auto) 1.7 L (2-4) % Baso % (Auto) 0.9 (0-2) % Neut # (Auto) 5100 (0329-2732) /uL Lymph # (Auto) 2100 (6630-4443) /uL [place] # (Auto) 900 (0-900) /uL Eos # (Auto) 100 (0-450) /uL Baso # (Auto) 100 (0-100) /uL PT 11.0 (9.4-12.5) SECONDS INR 1.0 (0.9-1.3) Sodium 140 (137-145) mmol/L Potassium 3.7 (3.4-5.1) mmol/L Chloride 107 (98-107) mmol/L Carbon Dioxide 25 (22-32) mmol/L BUN 17 (7-17) mg/dL Creatinine 0.80 (0.52-1.04) mg/dL Estimated GFR > 60 (>60) mL/min BUN/Creatinine Ratio 21.3 (6-22) Glucose 93 (70-100) mg/dL Calcium 10.1 (8.4-10.2) mg/dL Total Bilirubin 1.4 H (0.2-1.3) mg/dL AST 51 H (14-36) IU/L ALT 65 H (<35) IU/L Alkaline Phosphatase 108 (38-126) U/L Total Protein 8.4 H (6.3-8.2) g/dL Albumin 5.1 H (3.5-5.0) g/dL Globulin 3.3 (1.7-4.1) g/dL Albumin/Globulin Ratio 1.5 (1.0-2.8) Lipase 133 (23-300) U/L Chlamy pneumoniae PCR Not detected (Not Detect) Adenovirus (PCR) Not detected (Not Detect) B.parapertussis DNA PCR Not detected (Not Detecte) Coronavirus OC43 (PCR) Not detected (Not Detect) Coronavirus HKU1 (PCR) Not detected (Not Detect) Coronavirus 229E (PCR) Not detected (Not Detect) SARS-CoV-2 (PCR) Not detected (Not Detecte) Coronavirus NL63 (PCR) Not detected (Not Detect) Human Metapneumovir PCR Not detected (Not Detect) Influenza Type A (PCR) Not detected (Not Detect) Influenza Type B (PCR) Not detected (Not Detect) M. pneumoniae (PCR) Not detected (Not Detect) Parainfluenza 1 (PCR) Not detected (Not Detect) Parainfluenza 2 (PCR) Not detected (Not Detect) Parainfluenza 3 (PCR) Not detected (Not Detect) Parainfluenza 4 (PCR) Not detected (Not Detect) RSV (PCR) Not detected (Not Detect) Entero/Rhino (PCR) Not detected (Not Detect) Urine Dip Bedside Urine Glucose Negative Bedside Urine Bilirubin - Negative Bedside Urine Ketone +/- 5 Urine Specific [place] 1.015 Bedside Urine Occult Blood - Negative Bedside Urine pH 6.0 Bedside Urine Protein - Negative Bedside Urine Urobilinogen - Negative Bedside Urine Nitrite - Negative Bedside Urine Leukocytes - Negative Esterase Imaging Data CT scan - abdomen/pelvis: Radiologist's Impression: [address] [address] [address] Scan Report Signed Patient: Micki Cruz MR#: [id number] : 1965 Acct:[id number] Age/Sex: 57 / F Date of Service: 10/14/23 Loc: ED Accession Number: [id number] Procedure: CT abdomen pelvis w con Ordering Provider: Jaylen Mccord MD PROCEDURE: CT ABDOMEN PELVIS W CON INDICATIONS: IV contrast only/Abdominal pain nausea and vomiting TECHNIQUE: After the administration of intravenous contrast, axial sections acquired from the lung bases to the pubic symphysis. Coronal and sagittal reformats were performed. For radiation dose reduction, the following was used: automated exposure control, adjustment of mA and/or kV according to patient size. COMPARISON: [facility], CT, CT ABDOMEN PELVIS W CON, 07/28/2023, 22:54. FINDINGS: Image quality: Diagnostic. Lower Chest: No significant findings. ABDOMEN: Liver: No solid mass. The liver is diffusely hypodense suggesting fatty infiltration. Gallbladder: The gallbladder is mildly distended. No stones, sludge, wall thickening or pericholecystic fluid. Biliary ducts: No biliary dilation. Pancreas: No ductal dilation. Spleen: Size is within normal limits. A small splenule is present adjacent to the spleen. Adrenal Glands: No adrenal nodules. Kidneys and Ureters: No hydronephrosis. No solid mass. No complex renal cystic lesion which requires follow up. Stomach and Bowel: Normal colonic caliber, without significant wall thickening. Peritoneum: No abnormal intraperitoneal fluid. No free air. Ventral Wall: No significant ventral hernia. Abdominal Nodes: No retroperitoneal or mesenteric adenopathy by size criteria. Vessels: Aorta and inferior vena cava are normal in size. PELVIS: Pelvic Organs: Unremarkable. Bladder: No bladder wall thickening, accounting for underdistention. Pelvic Nodes: No enlarged lymph nodes. Miscellaneous: No inguinal hernias are seen. Bones: No aggressive osseous abnormality. IMPRESSION: 1. Hepatic steatosis. 2. No acute intra-abdominal findings. Dictated by: Gilda Downs M.D. on 10/14/2023 at 17:00 Approved by: Gilda Downs M.D. on 10/14/2023 at 17:02 [facility] Narrative Medical decision making narrative: brought patient here for 3 weeks complaint of nausea vomiting chills abdominal discomfort. History of malrotation. Did have surgical intervention for release of bands. That was years ago. Currently not being followed by any general surgeon or continuous improvement coach. Patient seen here in June for the same complaint. CT imaging was done at that time. Has these episodes intermittently. No urinary complaints no back pain no chest pain After history and exam CBC CMP CT abdomen pelvis morphine Zofran normal saline respiratory panel urinalysis [facility] Medical records reviewed: ER visit CT imaging done here June 2023 Differential considered: Includes but not limited to bowel obstruction volvulus colitis viral syndrome Lab Test results independently reviewed as above. Pertinent findings: WBC 8.4 hemoglobin 17 sodium 140 potassium 3.7 BUN 17 creatinine 0.8 AST 51 ALT 65, similar to June 2023 Urinalysis negative blood negative nitrate negative leukocyte esterase Imaging studies independently reviewed: CT abdomen pelvis no acute finding Consultations: None indicated today however general surgery referral will be provided for future endoscopy Treatments: Morphine Zofran normal saline Re-evaluations: 6:00 p.m.. Symptoms have resolved. Patient feeling much better. 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 Referral for General surgery will be provided. Zofran prescription will be provided as well. She desires discharge home. Return precautions reviewed. Patient does not want to wait for viral panel, it will not car changer. Discussion: Appropriate for discharge home. Exam and laboratory studies imaging are reassuring. Referral for General surgery will be provided. Zofran prescription will be provided as well. Not toxic at discharge. Return precautions reviewed. She desires discharge home Diagnosis: Recurrent abdominal pain Discharge Plan Departure Patient Disposition: Home Clinical Impression: Abdominal pain, recurrent Instructions: DI for Abdominal Pain-Adult, DI for Vomiting -- Adult Activity Restrictions/Additional Instructions: I am glad you are feeling better. No driving or operating machinery today after medications that were given you today. Laboratory studies and radiograph studies are reassuring. Please call provided general surgery office tomorrow to schedule outpatient endoscopy. Oral nausea medication has been sent to your pharmacy as well as suppository nausea medication to take if the oral medication is not working. Keep well hydrated. Return if worse if any questions or concerns Prescriptions: New ondansetron 4 mg tablet,disintegrating 4 mg PO Q8H PRN (Reason: nausea and vomiting) Qty: 20 0RF promethazine 25 mg suppository 25 mg VA Q6H PRN (Reason: nausea and vomiting) Qty: 12 0RF No Action ondansetron 4 mg tablet,disintegrating 4 mg PO Q6H PRN (Reason: nausea and vomiting) Qty: 10 0RF omega-3 acid ethyl esters [Lovaza] 1 gram capsule 1 cap PO DAILY Qty: 90 3RF estradiol [Yuvafem] 10 mcg tablet 10 mcg VAG 2XW norethindrone acetate 5 mg tablet 5 mg PO DAILY [MULTIVITAMIN] PO QDAY Qty: 0 thyroid (pork) [[place] Thyroid] 90 mg tablet 90 mg PO QDAY Qty: 45 0RF Rx Instructions: Take one and a half tabs daily ondansetron 4 mg tablet,disintegrating 4 mg PO Q8H PRN (Reason: nausea and vomiting) Qty: 20 0RF Referrals: Flavio Ragsdale MD [Physician] - Miscellaneous,MD Mayela [Primary Care Provider] - Stand Alone Forms: Patient Portal/API
[2023-10-14 18:03] VITALS: BP 128/72; PULSE 70; RESP 14; O2SAT 99
[2023-10-14 18:20] LABS: Adenovirus Not Detected (Not Detect); B. parapertussis Not Detected (Not Detecte); Bordetella pertussis Not Detected (Not Detect); Chlamydophila pneumoniae Not Detected (Not Detect); Coronavirus 229E Not Detected (Not Detect); Coronavirus HKU1 Not Detected (Not Detect); Coronavirus NL 63 Not Detected (Not Detect); Coronavirus OC43 Not Detected (Not Detect); Human Metapneumovirus Not Detected (Not Detect); Human Rhinovirus/Enterovirus Not Detected (Not Detect); Influenza A Not Detected (Not Detect); Influenza B Not Detected (Not Detect); Mycoplasma pneumoniae Not Detected (Not Detect); Parainfluenza Virus 1 Not Detected (Not Detect); Parainfluenza Virus 2 Not Detected (Not Detect); Parainfluenza Virus 3 Not Detected (Not Detect); Parainfluenza Virus 4 Not Detected (Not Detect); Respiratory Syncytial Virus Not Detected (Not Detect); SARS- CoV-2 Not Detected (Not Detecte)
--- NOTE | 2023-10-14 20:18 | PC.NURSE ---
PT called back for respiratory panel results, confirmed pt. and updated patient.
== END 2023-10-14 18:09 | disposition home or self-care (01) ==
PROVIDERS: Emergency Provider Emergency Medicine; Family Provider Physician Assistant
DX: R10.9 Unspecified abdominal pain (principal); R11.2 Nausea with vomiting, unspecified; Z20.822 Contact with and (suspected) exposure to COVID-19
CPT/HCPCS: 36415; 74177; 80053; 81003; 83690; 85025; 85610; 87633; 96361; 96374; 99284; J2405; Q9967

== ENCOUNTER 2023-11-03 09:17 | Day surgery (SDC) | payer OTHER, SELFPAY ==
--- NOTE | 2023-11-03 | PATH_ITS ---
[facility] Accession Number: [id number] No. of containers..03 Tissue . 01 Material submitted: . PART A: duodenum - DUODENUM PART B: gastrointestinal site - ANTRUM PART C: gastrointestinal site - GASTRIC BODY . 01 Diagnosis: Part A: DUODENUM: Duodenal mucosa with no diagnostic alterations. No active inflammation and no evidence of celiac disease. . Part B: ANTRUM: Gastric mucosa with minimal chronic inflammation. No Helicobacter organisms identified on H/E stain. No intestinal metaplasia, dysplasia, or malignancy identified. . Part C: GASTRIC BODY: Gastric mucosa with mild chronic inflammation. No Helicobacter organisms identified. No intestinal metaplasia, dysplasia, or malignancy identified. [facility] 11/10/2023 133 Local . 01 Electronically signed: . Ron Palacios MD, Pathologist NPI- [id number] . 01 Gross description: . Part A: DUODENUM: Received in formalin is 1 fragment(s) of spence, soft tissue measuring 0.3 x 0.3 x 0.2 cm submitted entirely in 1 cassette(s) . Part B: ANTRUM: Received in formalin are 2 fragment(s) of spence, soft tissue measuring 0.2 x 0.2 x 0.2 cm to 0.3 x 0.2 x 0.1 cm submitted entirely in 1 cassette(s) . Part C: GASTRIC BODY: Received in formalin are 4 fragment(s) of spence, soft tissue measuring 0.1 x 0.1 x 0.1 cm to 0.2 x 0.2 x 0.2 cm submitted entirely in 1 cassette(s) /[facility] 11/10/2023 133 Local . 01 Microscopic: . Part C: GASTRIC BODY: An immunohistochemical stain was performed to evaluate for Helicobacter organisms and is negative. The control stains appropriately. * This test was developed and its performance characteristics determined by [facility]. It has not been cleared or approved by the U.S. Food and Drug Administration. The FDA has determined that such clearance or approval is not necessary. This test is used for clinical purposes. It should not be regarded as investigational or for research. . 01 Pathologist provided ICD-10: K29.50 . 01 CPT . 511884, 020088, 664328, G87181 Specimen Comment: A courtesy copy of this report has been sent to [phone] Performed at: 01 [facility] [address] [place] [address], [place], [place] [id number] MD Ron Palacios MD Phone: [phone]
[2023-11-03 09:58] VITALS: BP 125/83; PULSE 73; RESP 16; TEMP 36.1; O2SAT 99
--- NOTE | 2023-11-03 10:44 | PM.PREOP ---
Pre-operative Note COVID-19 COVID-19 status: Not tested Interval Note History & Physical reviewed/Exam performed by Physician: Yes Changes to H&P: No ASA Class (for procedural sedation): II
[2023-11-03] MEDS: ONDANSETRON 4 MG/2 ML INJ IV ×2 (11:30→12:25)
[2023-11-03] MEDS: ACETAMINOPHEN IV 1,000 MG/100 ML VIAL 400 MG IV (11:32)
[2023-11-03] MEDS: LACTATED RINGERS 1,000 ML 42 ML IV ×2 (11:36→12:36)
--- NOTE | 2023-11-03 12:17 | P.OP.EGD&C_ITS ---
Operative Date/Time/Diagnoses Date of procedure: 11/03/23 Time of procedure: 12:17 Pre-op diagnosis: Abdominal pain Post-op diagnosis: same Procedure & Clinicians Study performed: EGD and colonoscopy Same procedure as scheduled: Yes Surgeon: Amor Rojas Procedure Notes Procedure in detail: Surgeon: Amor Rojas MD Anesthesia: Sobia Johnson DO Procedure in detail: A timeout was performed. A bite blocked was placed and monitors were attached to the patient. The patient was positioned in the left lateral decubitus position. Sedation was administered. Once the patient was sedated the endoscope was inserted through the bite block and passed through the esophagus and stomach and into the duodenum. The duodenum appeared normal. Random biopsies were taken with cold forceps from the duodenal.. We then withdrew the scope into the stomach. There was some mild antritis and random biopsies were taken from the antrum with cold forceps. There was mild gastritis in the body of the stomach and random biopsies were taken from the gastric body with the cold forceps. The endoscope was retroflexed and no abnormalities were seen. The endoscope was straightned and withdrawn into the esophagus. No abnormalities were seen. EGD findings: Mild gastritis mid portion of the stomach and antritis Next we repositioned the patient for a colonoscopy. A digital rectal exam was performed and was normal. The colonoscope was inserted and advanced to the cecum. The appendiceal orifice was identified and photographed. The scope was slowly withdrawn over greater than 6 minutes. No abnormalities were found throughout the colon. The scope was retroflexed in the rectum and no abno rmalities were seen. Colonoscopy findings: Normal colon Total procedural EBL: 5 mL Scope withdrawal time: 8 minutes Sedation minutes: 29 minutes Post-procedure Recommendations: Colonscopy in 10 years Disposition: PACU
[2023-11-03 12:21] VITALS: BP 113/80; PULSE 78; RESP 20; TEMP 36; O2SAT 97
[2023-11-03 12:26] VITALS: BP 111/78; PULSE 78; RESP 22; O2SAT 96
[2023-11-03 12:31] VITALS: BP 121/75; PULSE 79; RESP 20; O2SAT 98
[2023-11-03] MEDS: METOCLOPRAMIDE 10 MG/2 ML INJ IV (12:36)
--- NOTE | 2023-11-03 12:47 | SUR.PHASEI ---
Assumed care. VS stable. Crackers and natasha jurgen provided.
[2023-11-03 12:48] VITALS: BP 120/82; PULSE 76; RESP 12; TEMP 36.1; O2SAT 99
[2023-11-03 12:51] VITALS: BP 121/73; PULSE 66; RESP 12; TEMP 36.3; O2SAT 99
--- NOTE | 2023-11-03 13:07 | SUR.PHASEII ---
pt discharged to home. Pt denies any nausea or pain at present time. pt to be discharged with her friend.
== END 2023-11-03 13:08 | disposition home or self-care (01) ==
PROVIDERS: Family Provider Physician Assistant; Referring Provider Surgery; Visit Provider Surgery
PROC: 0DJ08ZZ Inspection of Upper Intestinal Tract, Via Natural or Artificial Opening Endoscopic (ICD-10-PCS; CPT 45378; principal; 2023-11-03 10:30)
PROC: 0DJD8ZZ Inspection of Lower Intestinal Tract, Via Natural or Artificial Opening Endoscopic (ICD-10-PCS; CPT 45378; 2023-11-03 10:30)
DX: R10.9 Unspecified abdominal pain (principal); K29.50 Unspecified chronic gastritis without bleeding
CPT/HCPCS: 45378; 43239; J0136; J0330; J1100; J2405; J2704; J2765

== ENCOUNTER → 2023-11-17 12:37 | Outpatient (CLI) | payer OTHER, SELFPAY ==
--- NOTE | 2023-11-17 12:38 | DI.US.S_ITS ---
PROCEDURE: US ABDOMEN COMPLETE INDICATIONS: abdominal pain and nausea TECHNIQUE: Real-time scanning was performed of the abdominal and retroperitoneal organs, with image documentation. COMPARISON: [facility], CT, CT ABDOMEN PELVIS W CON, 10/14/2023, 16:32. [facility], US, ABDOMEN COMPLETE, 09/27/2016, 15:34. FINDINGS: Liver: Increased liver echogenicity, with mild posterior attenuation. Gallbladder: No stones or wall thickening. Biliary ducts: Intrahepatic bile ducts are non-dilated. Extrahepatic bile duct caliber measures 5 mm. Normal is 6-7 mm or less in diameter, or 10 mm or less post-cholecystectomy. Pancreas: Visualized portions of the pancreas are sonographically normal. Spleen: Spleen is normal in size and homogeneous in echotexture. Splenule along the superior margin. Kidneys: Kidneys are normal in size and echotexture. Right kidney measures 10.6 cm long; left kidney measures 10.7 cm long. No hydronephrosis or nephrolithiasis. No solid masses. Aorta: Visualized aorta is normal in caliber at less than 3 cm. Iliacs: Proximal common iliac arteries are normal in caliber at less than 2.5 cm. IVC: Intrahepatic inferior vena cava is patent. Miscellaneous: No free abdominal fluid. IMPRESSION: Increased liver echogenicity, likely mild to moderate hepatic steatosis. No findings to explain the patient's right upper quadrant pain. No gallbladder pathology or hydronephrosis. Dictated by: Kulwant Hughes M.D. on 11/17/2023 at 15:33 Approved by: Kulwant Hughes M.D. on 11/17/2023 at 15:35
== END ==
LOC: US 12:38
PROVIDERS: Family Provider Physician Assistant; Referring Provider Surgery; Visit Provider Surgery
DX: R10.11 Right upper quadrant pain (principal)
CPT/HCPCS: 76700

== ENCOUNTER → 2024-03-16 10:19 | Outpatient (CLI) | payer OTHER, SELFPAY ==
[2024-03-16 11:01] LABS: Add Manual Diff / Slide Review NO; Basophils Absolute Auto 0 /uL (0-100); Basophils Percent Auto 0.8 % (0-2); Eosinophils Absolute Auto 200 /uL (0-450); Eosinophils Percent Auto 3.7 % (2-4); Hematocrit 43.5 % (36-46); Hemoglobin 15.1 g/dL (12.0-16.0); Lymphocytes Absolute Auto 1800 /uL (1100-4500); Lymphocytes Percent Auto 31.1 % (25-40); Mean Corpuscular HGB Conc 34.6 % (30-36); Mean Corpuscular Hemoglobin 30.4 PG (26-34); Mean Corpuscular Volume 87.8 fL (80-100); Monocytes Absolute Auto 700 /uL (0-900); Monocytes Percent Auto 12.5 % (3-14); Neutrophils Absolute Auto 3000 /uL (1500-7000); Neutrophils Percent Auto 51.9 % (50-75); Platelet Count 325 X10^3/uL (150-400); Red Blood Cell Count 4.95 X10^6/uL (4.0-5.2); White Blood Cell Count 5.8 X10^3/uL (4.5-11.0)
[2024-03-16 11:06] LABS: HEMOLYSIS < 15 (0-50)
[2024-03-16 11:13] LABS: Alanine Aminotransferase 56 IU/L (<35); Albumin 4.3 g/dL (3.5-5.0); Albumin Globulin Ratio 1.4 (1.0-2.8); Alkaline Phosphatase 91 U/L (38-126); Aspartate Aminotransferase 51 IU/L (14-36); BUN Creatinine Ratio 18.7 (6-22); Bilirubin Total 0.7 mg/dL (0.2-1.3); Blood Urea Nitrogen 17 mg/dL (7-17); Calcium 9.3 mg/dL (8.4-10.2); Carbon Dioxide 26 mmol/L (22-32); Chloride 107 mmol/L (98-107); Cholesterol 181 mg/dL (140-199); Estimated Glomerular Filt Rate > 60 mL/min (>60); Globulin 3.1 g/dL (1.7-4.1); Glucose 118 mg/dL (70-100); HDL Cholesterol 39 mg/dL (40-60); LDL Cholesterol Calculated 107 mg/dL (<100); Potassium 4.1 mmol/L (3.4-5.1); Sodium 139 mmol/L (137-145); Total Protein 7.4 g/dL (6.3-8.2); Triglycerides 174 mg/dL (35-150)
[2024-03-16 11:39] LABS: HEMOLYSIS < 15 (0-50); Iron 101 ug/dL (37-170)
[2024-03-16 11:47] LABS: Ferritin 74 ng/mL (11-264)
[2024-03-16 11:55] LABS: Percent Iron Saturation 31 % (15-50); Total Iron Binding Capacity 325 ug/dL (265-497); Transferrin 268 mg/dL (206-381)
[2024-03-16 11:57] LABS: Free T4, Direct Thyroxine 1.39 ng/dL (0.78-2.19)
[2024-03-16 12:11] LABS: Thyroid Stimulating Hormone 0.439 uIU/mL (0.47-4.68)
[2024-03-16 17:58] LABS: Free T3, Triiodothyronine Free 3.95 pg/mL (2.77-5.27)
[2024-03-16 18:13] LABS: Cortisol AM (Before 10AM) 6.48 ug/dL (4.46-22.7)
== END ==
LOC: LAB 10:20
PROVIDERS: Family Provider Physician Assistant; PCP Student in an Organized Health Care Education/Training Program; Referring Provider Student in an Organized Health Care Education/Training Program; Visit Provider Student in an Organized Health Care Education/Training Program
DX: R79.89 Other specified abnormal findings of blood chemistry (principal); E03.9 Hypothyroidism, unspecified; R53.83 Other fatigue; E78.2 Mixed hyperlipidemia; D58.2 Other hemoglobinopathies
CPT/HCPCS: 36415; 80053; 80061; 82533; 82728; 83540; 83550; 84439; 84443; 84481; 85025

== ENCOUNTER 2024-03-17 14:13 | Emergency (ER) | payer OTHER, SELFPAY ==
[2024-03-17] VITALS (12 sets, daily range): BP systolic 125–172; BP diastolic 66–99; PULSE 67–95; RESP 17–40; TEMP 36.3; O2SAT 97–100; BMI 26.6
--- NOTE | 2024-03-17 14:20 | DI.RAD.S_ITS ---
PROCEDURE: XR CHEST 1V INDICATIONS: chest pain TECHNIQUE: One view of the chest was acquired. COMPARISON: [facility], CR, XR CHEST 2V, 06/14/2018, 14:16. FINDINGS: Mild bibasilar subsegmental atelectasis some of which may be related to expiratory result. Cardiopericardial silhouette, pulmonary vasculature within normal limits. No pneumothorax, no pleural effusion, no focal consolidation. IMPRESSION: No radiographic evidence of acute abnormality. If symptoms persist or worsen, or there is high clinical suspicion of acute abnormality CT could be performed. Dictated by: Abbe Siu M.D. on 03/17/2024 at 14:55 Approved by: Abbe Siu M.D. on 03/17/2024 at 14:59
--- NOTE | 2024-03-17 14:20 | EKG_ITS ---
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
[2024-03-17 14:39] LABS: Add Manual Diff / Slide Review NO; Basophils Absolute Auto 100 /uL (0-100); Basophils Percent Auto 0.8 % (0-2); Eosinophils Absolute Auto 200 /uL (0-450); Eosinophils Percent Auto 2.4 % (2-4); Hematocrit 44.3 % (36-46); Hemoglobin 15.4 g/dL (12.0-16.0); Lymphocytes Absolute Auto 2800 /uL (1100-4500); Lymphocytes Percent Auto 35.6 % (25-40); Mean Corpuscular HGB Conc 34.8 % (30-36); Mean Corpuscular Hemoglobin 30.3 PG (26-34); Mean Corpuscular Volume 87.2 fL (80-100); Monocytes Absolute Auto 900 /uL (0-900); Monocytes Percent Auto 10.9 % (3-14); Neutrophils Absolute Auto 3900 /uL (1500-7000); Neutrophils Percent Auto 50.3 % (50-75); Platelet Count 368 X10^3/uL (150-400); Red Blood Cell Count 5.08 X10^6/uL (4.0-5.2); Red Cell Distribution Width 12.9 % (11.6-14.8); White Blood Cell Count 7.8 X10^3/uL (4.5-11.0)
[2024-03-17 14:48] LABS: INR 0.9 (0.9-1.3); Prothrombin Time 10.5 SECONDS (9.4-12.5)
[2024-03-17 14:50] LABS: PTT Partial Thromboplastin Tim 42 SECONDS (25.1-36.5)
[2024-03-17 14:53] LABS: Alanine Aminotransferase 73 IU/L (<35); Albumin 4.7 g/dL (3.5-5.0); Albumin Globulin Ratio 1.5 (1.0-2.8); Alkaline Phosphatase 107 U/L (38-126); Aspartate Aminotransferase 77 IU/L (14-36); Bilirubin Total 0.7 mg/dL (0.2-1.3); Blood Urea Nitrogen 16 mg/dL (7-17); Calcium 9.7 mg/dL (8.4-10.2); Carbon Dioxide 21 mmol/L (22-32); Chloride 106 mmol/L (98-107); Creatine Kinase 247 U/L (30-135); Estimated Glomerular Filt Rate > 60 mL/min (>60); Globulin 3.1 g/dL (1.7-4.1); Glucose 106 mg/dL (70-100); HEMOLYSIS 17 (0-50); Lipase 156 U/L (23-300); Magnesium 2.1 mg/dL (1.6-2.3); Potassium 3.8 mmol/L (3.4-5.1); Sodium 140 mmol/L (137-145); Total Protein 7.8 g/dL (6.3-8.2)
[2024-03-17 15:04] LABS: NT-proBNP (BNP-Adult 18+) 37 pg/mL (<125); Troponin I < 0.012 ng/mL (0.01-0.034)
[2024-03-17 17:10] LABS: Troponin I < 0.012 ng/mL (0.01-0.034)
--- NOTE | 2024-03-17 18:04 | EKG_ITS ---
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
--- NOTE | 2024-03-17 18:30 | ED_ITS ---
HPI - General Adult General Chief complaint: Dizziness Stated complaint: Heart Issues, Beating hard Time Seen by Provider: 03/17/24 18:01 Mode of arrival: Ambulatory History of Present Illness HPI narrative: 58-year-old woman postmenopausal on estradiol and hypothyroid presents to the ER complaining of couple of weeks of lightheadedness, nausea, palpitations with the occasional chest pain. Was seen yesterday with a new visit to her primary care physician with labs drawn. She is concerned that all of her symptoms have worsened over the last 2 weeks, she is anxious because an uncle recently from heart attack. She has not complaining of dyspnea, orthopnea, new or changed abdominal pain, headaches, particularly dry skin. She does have chronic constipation and chronic pelvic pain Related Data Home Medications Medication Instructions Recorded Confirmed estradiol 10 mcg vaginal tablet 10 mcg vaginal 2XW 07/01/18 03/15/24 (Yuvafem) levothyroxine 137 mcg capsule 137 mcg PO DAILY 03/15/24 03/15/24 Previous Rx's Medication Instructions Recorded metoprolol tartrate 25 mg tablet 25 mg PO BID PRN palpitation #30 03/17/24 tabs Allergies Allergy/AdvReac Type Severity Reaction Status Date / Time No Known Drug Allergies Allergy Verified 03/17/24 14:16 Review of Systems Review of Systems Narrative: Pertinent positive and negative findings as per HPI Patient History Medical History (Updated 03/17/24 @ 19:04 by Kalpana Meadows MD) Chronic constipation (Unknown) Blind right eye (Unknown) Hyperlipemia (Unknown) Hypothyroidism (Unknown) Chronic pelvic pain syndrome in female (Unknown) Hx of endometriosis (Unknown) Mixed hyperlipidemia (04/16/16) Blindness of one eye (11/13/10) Hypothyroidism (01/13/04) Surgical History Benld's bands (Unknown) Hx of eye surgery (Unknown) Status post rotator cuff repair Status post laparoscopy Status post breast reduction S/P total abdominal hysterectomy and bilateral salpingo-oophorectomy History of thyroidectomy Family History Sister History of breast cancer Social History Smoking Status: Never smoker second hand exposure: No alcohol intake: current substance use type: does not use Smoking Status: Never smoker alcohol intake frequency: holidays/special occasions only Substance Use Type: marijuana Exam Initial Vital Signs Initial Vital Signs: Vital Signs Temperature 97.3 F L 03/17/24 14:17 Pulse Rate 95 H 03/17/24 14:17 Blood Pressure 127/66 03/17/24 14:17 Pulse Oximetry 97 03/17/24 14:17 Oxygen Delivery Method Room Air 03/17/24 14:17 General: Healthy appearing, in no acute distress. Able to give a complete and coherent history. Well-nourished well-developed HEENT: Moist mucous membranes, normal sclera with reactive pupils, Respiratory: Lungs are clear to auscultation, no wheezing no rales no rhonchi. Full and symmetrical air movement Cardiac: Regular rate and rhythm no murmurs no bruits Abdomen: Soft, nontender, good bowel tones, no flank pain Skin: Warm and dry, no rashes Neurologic: Grossly neurologically intact with no obvious asymmetries or abnormalities Extremities: No trauma, well perfused Psych: Cooperative, appropriate insight and affect Course Orders Ordered: ED Orders 03/17/24 14:20 XR chest 1V Stat EKG-12 Lead Stat 03/17/24 14:25 Complete Blood Count AUTO DIFF Stat Comprehensive Metabolic Panel Stat Lipase Stat Magnesium Stat NT-proBNP (BNP-Adult 18+) Stat PTT Partial Thromboplastin Paul Stat Prothrombin Time INR Stat Troponin & CK Cardiac Panel Stat 03/17/24 16:38 Troponin I Stat Discontinued Medications Aspirin (Aspirin 81 Mg Chew Tab) 324 mg PO NOW ONE Stop: 03/17/24 14:21 Last Admin: 03/17/24 16:39 Dose: Not Given Documented By: ANTONI Vital Signs Vital signs: Vital Signs - 8 hr 03/17/24 14:17 03/17/24 14:19 03/17/24 17:17 Temperature 97.3 F L Pulse Rate 95 H 81 Respiratory Rate 17 Blood Pressure 127/66 Pulse Oximetry 97 99 Oxygen Delivery Method Room Air 03/17/24 17:18 03/17/24 17:18 03/17/24 17:20 Temperature Pulse Rate 74 68 Respiratory Rate 24 Blood Pressure 151/83 H Pulse Oximetry 99 100 Oxygen Delivery Method 03/17/24 17:20 03/17/24 17:30 03/17/24 17:30 Temperature Pulse Rate 68 Respiratory Rate 27 H Blood Pressure 134/78 145/78 H Pulse Oximetry 100 Oxygen Delivery Method 03/17/24 17:46 03/17/24 17:46 03/17/24 18:00 Temperature Pulse Rate 67 70 Respiratory Rate 22 40 H Blood Pressure 125/79 Pulse Oximetry 98 99 Oxygen Delivery Method 03/17/24 18:01 03/17/24 18:01 Temperature Pulse Rate 72 Respiratory Rate 37 H Blood Pressure 172/99 H Pulse Oximetry 99 Oxygen Delivery Method Medical Decision Making Lab Data 03/17/24 14:25 03/17/24 14:25 Labs: Lab Results 03/17/24 03/17/24 Range/Units 14:25 16:38 WBC 7.8 (4.5-11.0) X10^3/uL RBC 5.08 (4.0-5.2) X10^6/uL Hgb 15.4 (12.0-16.0) g/dL Hct 44.3 (36-46) % MCV 87.2 (80-100) fL MCH 30.3 (26-34) PG MCHC 34.8 (30-36) % RDW 12.9 (11.6-14.8) % Plt Count 368 (150-400) X10^3/uL Neut % (Auto) 50.3 (50-75) % Lymph % (Auto) 35.6 (25-40) % [place] % (Auto) 10.9 (3-14) % Eos % (Auto) 2.4 (2-4) % Baso % (Auto) 0.8 (0-2) % Neut # (Auto) 3900 (2388-0695) /uL Lymph # (Auto) 2800 (7333-1820) /uL [place] # (Auto) 900 (0-900) /uL Eos # (Auto) 200 (0-450) /uL Baso # (Auto) 100 (0-100) /uL PT 10.5 (9.4-12.5) SECONDS INR 0.9 (0.9-1.3) APTT 42 H (25.1-36.5) SECONDS Sodium 140 (137-145) mmol/L Potassium 3.8 (3.4-5.1) mmol/L Chloride 106 (98-107) mmol/L Carbon Dioxide 21 L (22-32) mmol/L BUN 16 (7-17) mg/dL Creatinine 0.89 (0.52-1.04) mg/dL Estimated GFR > 60 (>60) mL/min BUN/Creatinine Ratio 18.0 (6-22) Glucose 106 H (70-100) mg/dL Calcium 9.7 (8.4-10.2) mg/dL Magnesium 2.1 (1.6-2.3) mg/dL Total Bilirubin 0.7 (0.2-1.3) mg/dL AST 77 H (14-36) IU/L ALT 73 H (<35) IU/L Alkaline Phosphatase 107 (38-126) U/L Total Creatine Kinase 247 H (30-135) U/L Troponin I < 0.012 < 0.012 (0.01-0.034) ng/mL NT-Pro-B Natriuret Pep 37 (<125) pg/mL Total Protein 7.8 (6.3-8.2) g/dL Albumin 4.7 (3.5-5.0) g/dL Globulin 3.1 (1.7-4.1) g/dL Albumin/Globulin Ratio 1.5 (1.0-2.8) Lipase 156 (23-300) U/L MDM Narrative Medical decision making narrative: CC: Dizziness, palpitations Complicating co-morbidities: Postmenopausal, on thyroid replacement Data collected from: patient Medical records reviewed: Patient was seen with a new patient visit by her primary care doctor yesterday with all of these complaints discussed, labs were done. Differential considered: Estrogen deficiency issues, thyroid adjustment needed, brief episodes of atrial fibrillation, significant anemia, electrolyte abnormalities Exam documented above, pertinent findings include: Benign exam, no palpitations appreciated Lab Test results independently reviewed as above. Pertinent findings: CBC done yesterday and repeated today entirely unremarkable with no anemia Independently reviewed EKG: Sinus rhythm at a rate of 89, normal intervals, normal axis. No acute ischemic changes. She does not have any dysrhythmias appreciated on EKG With telemetry, she is showing normal sinus rhythm, not even a simple sinus arrhythmia or PVCs or PACs and still complaining of severe palpitations Imaging studies independently reviewed: Chest x-ray is unremarkable Treatments: 25 mg of oral metoprolol Discussion: 58-year-old woman with complaints of palpitations increasing for the last 2 weeks. She is very anxious about this. With complaints of the palpitations we are not seeing corresponding arrhythmia either an EKG are with telemetry. We discussed the fact that she does not have any life-threatening abnormalities, her heart score today is 0. EKG was reassuring. We talked about trying metoprolol 25 mg b.i.d. as needed palpitations simply for symptomatic relief. I also suggested that she discuss additional postmenopausal hormone issues with her primary care physician. She does have a follow up in 2 weeks. She is safe for discharge Discharge Plan Departure Patient Disposition: Home Clinical Impression: Heart palpitations Instructions: DI for Palpitations Activity Restrictions/Additional Instructions: Thank you for coming in today Your workup was very reassuring. There is no evidence that you have a life- threatening process or suggestion of acute heart attack or life-threatening cardiac arrhythmia Your thyroid studies seem appropriate. You do not have significant anemia. Your EKG and the rhythm monitor that we had on you in the emergency department are not showing any severe palpitations that would require hospitalization or immediate changes at this time I am going to suggest that you try using a very small dose of short-acting metoprolol. This is a heart rate and blood pressure medication that can be helpful with symptomatic palpitations. You can take up to 1 pill in the morning and 1 pill at night as needed for palpitations. Please keep your 2 week follow up with your new primary care physician, in reading through her notes it looks like she has done a very thorough job and did hear all of your complaints. You may want to discuss with her additional postmenopausal treatment if no other diagnoses are noted with your palpitations. Your metoprolol prescription was electronically transmitted to [facility] [employer] Prescriptions: New metoprolol tartrate 25 mg tablet 25 mg PO BID PRN (Reason: palpitation) Qty: 30 0RF No Action estradiol [Yuvafem] 10 mcg tablet 10 mcg VAG 2XW levothyroxine 137 mcg capsule 137 mcg PO DAILY Referrals: Sherry Santos MD [Primary Care Provider] - Stand Alone Forms: Patient Portal/API
[2024-03-17] MEDS: METOPROLOL IR 25 MG TABLET PO (19:09)
== END 2024-03-17 19:28 | disposition home or self-care (01) ==
PROVIDERS: Emergency Medicine; Emergency Provider Emergency Medicine; Family Provider Physician Assistant; PCP Student in an Organized Health Care Education/Training Program
DX: R00.2 Palpitations (principal); R07.9 Chest pain, unspecified
CPT/HCPCS: 36415; 71045; 80053; 81003; 82550; 83690; 83735; 83880; 84484; 85025; 85610; 85730; 93005; 99284

== ENCOUNTER 2024-03-22 12:45 | Emergency (ER) | payer OTHER, SELFPAY ==
[2024-03-22] VITALS (12 sets, daily range): BP systolic 128–163; BP diastolic 76–88; PULSE 69–115; RESP 17–50; TEMP 36.8–36.9; O2SAT 96–100; BMI 25.4
--- NOTE | 2024-03-22 13:07 | DI.CT.S_ITS ---
PROCEDURE: CT ABDOMEN PELVIS W CON INDICATIONS: Right-sided flank and right lower quadrant abdominal pain TECHNIQUE: After the administration of intravenous contrast, axial sections acquired from the lung bases to the pubic symphysis. Coronal and sagittal reformats were performed. For radiation dose reduction, the following was used: automated exposure control, adjustment of mA and/or kV according to patient size. COMPARISON: [facility], CT, CT ABDOMEN PELVIS W CON, 10/14/2023, 16:32. FINDINGS: Image quality: Diagnostic. Lower Chest: No significant findings. ABDOMEN: Liver: No solid mass. Hepatic steatosis. Gallbladder: No radiopaque gallstones or wall thickening. Biliary ducts: No biliary dilation. Pancreas: No ductal dilation. Spleen: Size is within normal limits. Adrenal Glands: No adrenal nodules. Kidneys and Ureters: No hydronephrosis. No solid mass. No complex renal cystic lesion which requires follow up. Stomach and Bowel: Normal colonic caliber, without significant wall thickening. Scattered diverticula without evidence of acute diverticulitis. Findings concerning for mild rotation, the 3rd portion the duodenum does not cross midline and majority of the small bowel is in the right abdomen. Peritoneum: No abnormal intraperitoneal fluid. No free air. Ventral Wall: No significant ventral hernia. Abdominal Nodes: No retroperitoneal or mesenteric adenopathy by size criteria. Vessels: Aorta and inferior vena cava are normal in size. Atherosclerotic vascular calcifications. PELVIS: Pelvic Organs: Unremarkable. Bladder: No bladder wall thickening, accounting for underdistention. Pelvic Nodes: No enlarged lymph nodes. Miscellaneous: No inguinal hernias are seen. Bones: No aggressive osseous abnormality. Mild degenerative changes of the spine. IMPRESSION: No acute findings within the abdomen or pelvis to explain patient's symptoms. Dictated by: Onofre Johnston M.D. on 03/22/2024 at 14:17 Approved by: Onofre Johnston M.D. on 03/22/2024 at 14:22
--- NOTE | 2024-03-22 13:07 | EKG_ITS ---
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
--- NOTE | 2024-03-22 13:08 | ED_ITS ---
HPI - Abdominal Pain General Chief Complaint: Weakness Stated Complaint: fever, weakness Time Seen by Provider: 03/22/24 13:06 History of Present Illness HPI narrative: Patient 58-year-old female past medical history of hypothyroidism hypertension comes into the ED from home for evaluation of multiple complaints. States that she has been feeling weak, also complaining of right flank pain and right lower quadrant abdominal pain, states that she feels pain ?all over also stating that she feels like the pain is radiating up into her chest but states she has not having any shortness of breath. She denies any trauma or falls. Related Data Home Medications Medication Instructions Recorded Confirmed estradiol 10 mcg vaginal tablet 10 mcg vaginal 2XW 07/01/18 03/15/24 (Yuvafem) Previous Rx's Medication Instructions Recorded metoprolol tartrate 25 mg tablet 25 mg PO BID PRN palpitation #30 03/17/24 tabs levothyroxine 125 mcg tablet 125 mcg PO DAILY #60 tabs 03/18/24 Allergies Allergy/AdvReac Type Severity Reaction Status Date / Time No Known Drug Allergies Allergy Verified 03/17/24 14:16 Review of Systems Review of Systems Narrative: General: Positive Fever HEENT: Denies headache, eye drainage, eye irritation, head trauma, sore throat, voice change Cardiovascular: Denies any chest pain, palpitations, shortness of breath, tachycardia Respiratory: Denies any shortness of breath, cough, wheeze, stridor GI/: Denies any vomiting, diarrhea, bright red blood per rectum, melanotic stools, urinary frequency, urinary retention, dysuria, hematuria, positive right flank pain positive right lower quadrant abdominal pain MSK: Denies any joint pain, muscle pains, swelling Skin: Denies any rashes, lesions, discoloration Neuro: Denies any headache, lightheadedness, dizziness, fainting, weakness Psych: Denies SI/HI Patient History Medical History (Updated 03/22/24 @ 15:36 by Ferdinand Jaffe DO) Chronic constipation (Unknown) Blind right eye (Unknown) Hyperlipemia (Unknown) Hypothyroidism (Unknown) Chronic pelvic pain syndrome in female (Unknown) Hx of endometriosis (Unknown) Mixed hyperlipidemia (04/16/16) Blindness of one eye (11/13/10) Hypothyroidism (01/13/04) Surgical History Kaveh's bands (Unknown) Hx of eye surgery (Unknown) Status post rotator cuff repair Status post laparoscopy Status post breast reduction S/P total abdominal hysterectomy and bilateral salpingo-oophorectomy History of thyroidectomy Family History Sister History of breast cancer Social History Smoking Status: Never smoker second hand exposure: No alcohol intake: current substance use type: does not use Smoking Status: Never smoker alcohol intake frequency: holidays/special occasions only Substance Use Type: marijuana Exam Narrative Exam Narrative: General: Cooperative, comfortable, well-developed, not in acute distress HEENT: Normocephalic, atraumatic, PERRLA, normal sclera, eyelids normal, Neck: Active full range of motion, atraumatic Chest: Normal to inspection, negative crepitus, no overlying erythema ecchymosis Respiratory: Normal respiratory effort, not in acute respiratory distress, clear to auscultation bilaterally negative cough, wheeze, tachypnea, rhonchi, rales Cardiology: Regular rate rhythm negative gallop, murmur, rubs GI/: Positive for right lower quadrant abdominal pain, right CVA tenderness exam deferred MSK: Full range of active range of motion of all 4 extremities, atraumatic Skin: No rashes lesions noted Neuro: Alert awake oriented x3, moves all 4 extremities spontaneously, cranial nerves intact, able to answer all questions appropriately follows commands appropriately Psych: Cooperative, negative suicidal or homicidal ideations Initial Vital Signs Initial Vital Signs: Vital Signs Pulse Rate 108 H 03/22/24 12:51 Pulse Oximetry 100 03/22/24 12:51 Course Orders Ordered: ED Orders 03/22/24 13:00 Complete Blood Count AUTO DIFF Stat Comprehensive Metabolic Panel Stat Lactate (Lactic Acid) Stat Lipase Stat 03/22/24 13:07 CT abdomen pelvis w con Stat EKG-12 Lead Stat 03/22/24 13:50 Blood Culture Stat Urinalysis and Microscopic Stat Urine Drug Screen, Rapid Stat Discontinued Medications Sodium Chloride (Normal Saline 0.9%) 1,000 mls @ 1,000 mls/hr IV BOLUS ONE Stop: 03/22/24 14:06 Last Infusion: 03/22/24 14:44 Dose: Infused Documented By: JEAN PIERRE Admin: 03/22/24 13:19 Dose: 1,000 mls/hr Documented By: WILLIAM Morphine Sulfate (Morphine 4 Mg/Ml Inj) 4 mg IV NOW ONE Stop: 03/22/24 13:08 Last Admin: 03/22/24 13:19 Dose: 4 mg Documented By: WILLIAM Ondansetron HCl (Ondansetron 4 Mg/2 Ml Inj) 4 mg IV NOW ONE Stop: 03/22/24 13:08 Last Admin: 03/22/24 13:20 Dose: 4 mg Documented By: WILLIAM Vital Signs Vital signs: Vital Signs - 8 hr 03/22/24 12:51 03/22/24 12:52 03/22/24 12:52 Temperature Pulse Rate 108 H 108 H Respiratory Rate 50 H Blood Pressure 163/88 H Pulse Oximetry 100 100 Oxygen Delivery Method 03/22/24 13:00 03/22/24 13:04 03/22/24 13:19 Temperature 98.2 F Pulse Rate 111 H 115 H Respiratory Rate 46 H 30 H Blood Pressure 163/88 H 142/76 H Pulse Oximetry 100 99 Oxygen Delivery Method Room Air 03/22/24 13:19 03/22/24 13:30 03/22/24 13:33 Temperature Pulse Rate 94 H 90 Respiratory Rate 25 H 45 H Blood Pressure 148/82 H Pulse Oximetry 100 Oxygen Delivery Method 03/22/24 13:33 03/22/24 14:33 03/22/24 14:34 Temperature Pulse Rate 86 84 Respiratory Rate 40 H Blood Pressure 150/80 H Pulse Oximetry 98 96 Oxygen Delivery Method Room Air 03/22/24 14:34 Temperature Pulse Rate 69 Respiratory Rate 22 Blood Pressure Pulse Oximetry 96 Oxygen Delivery Method MDM - Abdominal Pain Differential Diagnosis Differential diagnosis: Likely abdominal pain, acute appendicitis, constipation, diverticulitis, small bowel obstruction and other (UTI) Medical Records Attestation: I reviewed the patient's medical records. Lab Data Attestation: I reviewed the patient's lab results. 03/22/24 13:00 03/22/24 13:00 Labs: Lab Results 03/22/24 03/22/24 03/22/24 Range/Units 13:00 13:50 13:50 WBC 9.9 (4.5-11.0) X10^3/uL RBC 5.85 H (4.0-5.2) X10^6/uL Hgb 17.6 H (12.0-16.0) g/dL Hct 51.0 H (36-46) % MCV 87.2 (80-100) fL MCH 30.1 (26-34) PG MCHC 34.6 (30-36) % RDW 13.3 (11.6-14.8) % Plt Count 431 H (150-400) X10^3/uL Neut % (Auto) 52.6 (50-75) % Lymph % (Auto) 33.4 (25-40) % [place] % (Auto) 11.7 (3-14) % Eos % (Auto) 1.7 L (2-4) % Baso % (Auto) 0.6 (0-2) % Neut # (Auto) 5200 (1833-3982) /uL Lymph # (Auto) 3300 (6582-5383) /uL [place] # (Auto) 1200 H (0-900) /uL Eos # (Auto) 200 (0-450) /uL Baso # (Auto) 100 (0-100) /uL Sodium 137 (137-145) mmol/L Potassium 3.7 (3.4-5.1) mmol/L Chloride 102 (98-107) mmol/L Carbon Dioxide 21 L (22-32) mmol/L BUN 26 H (7-17) mg/dL Creatinine 0.99 (0.52-1.04) mg/dL Estimated GFR > 60 (>60) mL/min BUN/Creatinine Ratio 26.3 H (6-22) Glucose 125 H (70-100) mg/dL Lactate 1.8 (0.7-2.1) mmol/L Calcium 10.7 H (8.4-10.2) mg/dL Total Bilirubin 1.4 H (0.2-1.3) mg/dL AST 61 H (14-36) IU/L ALT 72 H (<35) IU/L Alkaline Phosphatase 114 (38-126) U/L Total Protein 9.0 H (6.3-8.2) g/dL Albumin 5.3 H (3.5-5.0) g/dL Globulin 3.7 (1.7-4.1) g/dL Albumin/Globulin Ratio 1.4 (1.0-2.8) Lipase 169 (23-300) U/L Urine Color Yellow Urine Appearance Clear Urine pH 6.0 Normal (4.5-8.0) Ur Specific [place] <=1.005 (1.000-1.035) Urine Protein Negative (Negative) Urine Glucose (UA) Negative (Negative) g/dL Urine Ketones Negative (NEGATIVE) Urine Occult Blood Negative (Negative) Urine Nitrate Negative (Negative) Urine Bilirubin Negative (NEGATIVE) Urine Urobilinogen 0.2 (0.2) E.U./dL Ur Leukocyte Esterase Negative (NEGATIVE) Urine RBC None seen (0-5/HPF) Urine WBC None seen (0-5/HPF) Ur Squamous Epith Cells None seen (0-5/HPF) Urine Bacteria None seen (None) Ur Culture Indicated? Cult not indicated Vol Urine Centrifuged 10ml (spun) U Opiates 300ng/mL cut Positive H (Negative) Ur Oxycodone Screen Negative (Negative) Urine Methadone Screen Negative (Negative) Ur Barbiturates Screen Negative (Negative) U Tricyclic Antidepress Negative (Negative) Ur Phencyclidine Scrn Negative (Negative) Ur Amphetamines Screen Negative (Negative) U Methamphetamines Scrn Negative (Negative) Ur MDMA Scrn (Ecstasy) Negative (Negative) U Benzodiazepines Scrn Negative (Negative) Urine Cocaine Screen Negative (Negative) U Marijuana (THC) Screen Negative (Negative) Urine Specific [place] Normal (Normal) Ur Creatinine Normal (Normal) ECG Data Attestation: I personally reviewed and interpreted this ECG as follows: Interpretation: EKG interpreted ED decision sinus and ABX per minute QTC [address] changes no STEMI MDM Narrative Medical decision making narrative: Patient is a 58-year-old female with past medical history hypertension hypothyroidism presents to the ED for evaluation of multiple complaints, stating that she was having right-sided CVA tenderness and right lower quadrant abdominal pain associated with diffuse weakness ongoing persistent for the past 3 weeks but has gotten worse today states that she felt too weak to walk. Lab work imaging unremarkable for any pyelonephritis urinary tract infection electrolyte abnormality, patient improved after administration of fluids here strict return precautions given safe for discharge home with outpatient follow- up Discharge Plan Departure Patient Disposition: Home Clinical Impression: Weakness Activity Restrictions/Additional Instructions: Please read the discharge instructions sheet carefully and bring all papers to all doctor follow-up visits, as it may contain information that your doctor may want to see. Disease processes change and evolve, if your symptoms worsen or if you develop any new symptoms that are concerning to you please return for evaluation. Your evaluation today does not show any evidence of any life- threatening/serious illnesses requiring admission to the hospital or surgery. Please follow-up with your doctor for re-evaluation in approximately 1 day. Seek immediate medical attention for any worrisome symptoms. Prescriptions: No Action estradiol [Yuvafem] 10 mcg tablet 10 mcg VAG 2XW levothyroxine 125 mcg tablet 125 mcg PO DAILY Qty: 60 0RF metoprolol tartrate 25 mg tablet 25 mg PO BID PRN (Reason: palpitation) Qty: 30 0RF Referrals: Sherry Santos MD [Primary Care Provider] - Stand Alone Forms: Patient Portal/API
[2024-03-22] MEDS: MORPHINE 4 MG/ML INJ IV (13:19)
[2024-03-22] MEDS: SODIUM CHLORIDE 0.9% 1,000 ML 1000 ML IV (13:19)
[2024-03-22] MEDS: ONDANSETRON 4 MG/2 ML INJ IV (13:20)
--- NOTE | 2024-03-22 13:31 | PC.NURSE ---
This MASTER CERTIFIED RV TECHNICIAN along with MIGEL Rocha helped pt use the commode; pt was unable to urinate
[2024-03-22 13:34] LABS: Alanine Aminotransferase 72 IU/L (<35); Albumin 5.3 g/dL (3.5-5.0); Albumin Globulin Ratio 1.4 (1.0-2.8); Alkaline Phosphatase 114 U/L (38-126); Aspartate Aminotransferase 61 IU/L (14-36); BUN Creatinine Ratio 26.3 (6-22); Bilirubin Total 1.4 mg/dL (0.2-1.3); Blood Urea Nitrogen 26 mg/dL (7-17); Calcium 10.7 mg/dL (8.4-10.2); Carbon Dioxide 21 mmol/L (22-32); Chloride 102 mmol/L (98-107); Estimated Glomerular Filt Rate > 60 mL/min (>60); Globulin 3.7 g/dL (1.7-4.1); Glucose 125 mg/dL (70-100); HEMOLYSIS 20 (0-50); Lactate (Lactic Acid) 1.8 mmol/L (0.7-2.1); Lipase 169 U/L (23-300); Potassium 3.7 mmol/L (3.4-5.1); Sodium 137 mmol/L (137-145)
[2024-03-22 13:52] LABS: Add Manual Diff / Slide Review NO; Basophils Absolute Auto 100 /uL (0-100); Basophils Percent Auto 0.6 % (0-2); Eosinophils Absolute Auto 200 /uL (0-450); Eosinophils Percent Auto 1.7 % (2-4); Hemoglobin 17.6 g/dL (12.0-16.0); Lymphocytes Absolute Auto 3300 /uL (1100-4500); Lymphocytes Percent Auto 33.4 % (25-40); Mean Corpuscular HGB Conc 34.6 % (30-36); Mean Corpuscular Hemoglobin 30.1 PG (26-34); Mean Corpuscular Volume 87.2 fL (80-100); Monocytes Absolute Auto 1200 /uL (0-900); Monocytes Percent Auto 11.7 % (3-14); Neutrophils Absolute Auto 5200 /uL (1500-7000); Neutrophils Percent Auto 52.6 % (50-75); Platelet Count 431 X10^3/uL (150-400); Red Blood Cell Count 5.85 X10^6/uL (4.0-5.2); Red Cell Distribution Width 13.3 % (11.6-14.8); White Blood Cell Count 9.9 X10^3/uL (4.5-11.0)
[2024-03-22 14:35] LABS: Appearance Urine UA CLEAR; Bilirubin Urine UA NEGATIVE (NEGATIVE); Color Urine UA YELLOW; Glucose Urine UA NEGATIVE (Negative); Ketones Urine UA NEGATIVE (NEGATIVE); Leukocyte Esterase Urine UA NEGATIVE (NEGATIVE); Nitrite Urine UA NEGATIVE (Negative); Occult Blood Urine UA NEGATIVE (Negative); Protein Urine UA NEGATIVE (Negative); Specific Gravity Urine UA <=1.005 (1.000-1.035); Urobilinogen Urine UA 0.2 E.U./dL (0.2)
[2024-03-22 14:40] LABS: Ur Creatinine Normal (Normal); Ur Specific Gravity Normal (Normal); Urine pH Normal (Normal)
[2024-03-22 14:45] LABS: Urine Amphetamines Negative (Negative); Urine Barbiturates Negative (Negative); Urine Benzodiazepines Negative (Negative); Urine Cocaine Negative (Negative); Urine MDMA Negative (Negative); Urine Methadone Negative (Negative); Urine Methamphetamines Negative (Negative); Urine Opiates Positive (Negative); Urine Oxycodone Negative (Negative); Urine Phencyclidine Negative (Negative); Urine THC Negative (Negative); Urine Tricyclic Antidepressant Negative (Negative)
[2024-03-22 15:08] LABS: Bacteria Urine None Seen; Culture Indicated Urine Cult Not Indicated; RBC Urine None Seen (0-5/HPF); Squamous Epithelial Cell Urine None Seen (0-5/HPF); Urine Volume 10mL (spun); WBC Urine None Seen (0-5/HPF)
== END 2024-03-22 15:43 | disposition home or self-care (01) ==
PROVIDERS: Emergency Provider Student in an Organized Health Care Education/Training Program; Family Provider Physician Assistant; PCP Student in an Organized Health Care Education/Training Program
DX: R53.1 Weakness (principal); R10.31 Right lower quadrant pain; I10 Essential (primary) hypertension; E03.9 Hypothyroidism, unspecified
CPT/HCPCS: 36415; 74177; 80053; 80305; 81001; 83605; 83690; 85025; 87040; 93005; 93010; 96361; 96374; 96375; 99284; J2270; J2405; Q9967

== ENCOUNTER 2024-03-24 17:15 | Emergency (ER) | payer OTHER, SELFPAY ==
[2024-03-24] VITALS (14 sets, daily range): BP systolic 116–154; BP diastolic 70–86; PULSE 63–100; RESP 16–37; TEMP 36.6–36.9; O2SAT 94–100; BMI 25.4
--- NOTE | 2024-03-24 17:24 | EKG_ITS ---
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
--- NOTE | 2024-03-24 17:24 | DI.RAD.S_ITS ---
PROCEDURE: XR CHEST 1V INDICATIONS: chest pain TECHNIQUE: One view of the chest was acquired. COMPARISON: [facility], CR, XR CHEST 1V, 03/17/2024, 14:28. FINDINGS: Surgical changes and devices: None. Lungs and pleura: Lungs are clear. No pleural effusions or pneumothorax. Mediastinum: Mediastinal contours appear normal. Heart size is normal. Bones and chest wall: No suspicious bony lesions. Overlying soft tissues appear unremarkable. IMPRESSION: No acute cardiopulmonary pathology. Dictated by: Nacho Montano M.D. on 03/24/2024 at 18:04 Approved by: Nacho Montano M.D. on 03/24/2024 at 18:04
[2024-03-24 17:55] LABS: Add Manual Diff / Slide Review NO; Basophils Absolute Auto 100 /uL (0-100); Basophils Percent Auto 0.8 % (0-2); Eosinophils Absolute Auto 300 /uL (0-450); Eosinophils Percent Auto 2.8 % (2-4); Hematocrit 46.2 % (36-46); Hemoglobin 15.9 g/dL (12.0-16.0); Lymphocytes Absolute Auto 2500 /uL (1100-4500); Lymphocytes Percent Auto 25.3 % (25-40); Mean Corpuscular HGB Conc 34.4 % (30-36); Mean Corpuscular Hemoglobin 30.3 PG (26-34); Mean Corpuscular Volume 87.9 fL (80-100); Monocytes Absolute Auto 900 /uL (0-900); Monocytes Percent Auto 9.5 % (3-14); Neutrophils Absolute Auto 6000 /uL (1500-7000); Neutrophils Percent Auto 61.6 % (50-75); Platelet Count 368 X10^3/uL (150-400); Red Blood Cell Count 5.26 X10^6/uL (4.0-5.2); Red Cell Distribution Width 13.1 % (11.6-14.8); White Blood Cell Count 9.7 X10^3/uL (4.5-11.0)
[2024-03-24 18:04] LABS: Prothrombin Time 11.2 SECONDS (9.4-12.5)
[2024-03-24 18:07] LABS: Alanine Aminotransferase 76 IU/L (<35); Albumin 4.9 g/dL (3.5-5.0); Albumin Globulin Ratio 1.5 (1.0-2.8); Alkaline Phosphatase 96 U/L (38-126); Aspartate Aminotransferase 75 IU/L (14-36); Bilirubin Total 0.8 mg/dL (0.2-1.3); Blood Urea Nitrogen 17 mg/dL (7-17); Calcium 9.5 mg/dL (8.4-10.2); Carbon Dioxide 26 mmol/L (22-32); Chloride 104 mmol/L (98-107); Creatine Kinase 162 U/L (30-135); Estimated Glomerular Filt Rate 52 mL/min (>60); Globulin 3.3 g/dL (1.7-4.1); Glucose 122 mg/dL (70-100); HEMOLYSIS < 15 (0-50); Lipase 141 U/L (23-300); PTT Partial Thromboplastin Tim 45 SECONDS (25.1-36.5); Potassium 3.7 mmol/L (3.4-5.1); Sodium 140 mmol/L (137-145); Total Protein 8.2 g/dL (6.3-8.2)
[2024-03-24 18:19] LABS: NT-proBNP (BNP-Adult 18+) 174 pg/mL (<125); Troponin I < 0.012 ng/mL (0.01-0.034)
--- NOTE | 2024-03-24 18:37 | ED.CHESTPAIN ---
HPI - Chest Pain General Chief Complaint: Chest Pain Stated Complaint: heart, fever, nausea was here 2 days ago for same Time Seen by Provider: 03/24/24 18:01 Source: patient Mode of arrival: Ambulatory History of Present Illness HPI narrative: 58-year-old female with history of hypothyroidism presents with several complaints. Patient states that she has a generalized headache, light sensitivity, nausea, and has been experiencing palpitations. Patient was seen 03/17 and on 03/22 for similar complaints. Patient states that she looked up her symptoms and is concerned that she may have meningitis. She states that she was in discussion with her primary care doctor about possibly getting a monitor for her heart to monitor her palpitations. Has had decreased po intake due to her nausea. Related Data Home Medications Medication Instructions Recorded Confirmed estradiol 10 mcg vaginal tablet 10 mcg vaginal 2XW 07/01/18 03/15/24 (Yuvafem) Previous Rx's Medication Instructions Recorded metoprolol tartrate 25 mg tablet 25 mg PO BID PRN palpitation #30 03/17/24 tabs levothyroxine 125 mcg tablet 125 mcg PO DAILY #60 tabs 03/18/24 Allergies Allergy/AdvReac Type Severity Reaction Status Date / Time No Known Drug Allergies Allergy Verified 03/24/24 17:24 Patient History Medical History Chronic constipation (Unknown) Blind right eye (Unknown) Hyperlipemia (Unknown) Hypothyroidism (Unknown) Chronic pelvic pain syndrome in female (Unknown) Hx of endometriosis (Unknown) Mixed hyperlipidemia (04/16/16) Blindness of one eye (11/13/10) Hypothyroidism (01/13/04) Surgical History Kaveh's bands (Unknown) Hx of eye surgery (Unknown) Status post rotator cuff repair Status post laparoscopy Status post breast reduction S/P total abdominal hysterectomy and bilateral salpingo-oophorectomy History of thyroidectomy Family History Sister History of breast cancer Social History Smoking Status: Never smoker second hand exposure: No alcohol intake: current substance use type: does not use Smoking Status: Never smoker alcohol intake frequency: holidays/special occasions only Substance Use Type: marijuana Exam Initial Vital Signs Initial Vital Signs: Vital Signs Temperature 97.9 F 03/24/24 17:21 Pulse Rate 100 H 03/24/24 17:21 Respiratory Rate 18 03/24/24 17:21 Blood Pressure 154/86 H 03/24/24 17:21 Pulse Oximetry 100 03/24/24 17:21 Oxygen Delivery Method Room Air 03/24/24 17:21 Const: Awake, alert, nontoxic appearing Neck: Full ROM, no rigidity Cardiac: regular rate, regular rhythm RESP: unlabored, clear bilaterally, no wheezing Skin: Warm, Dry, intact, no rashes Neuro: AO x3, CN II-XII grossly intact, moves all extremities Course Orders Ordered: ED Orders 03/24/24 17:24 XR chest 1V Stat EKG-12 Lead Stat 03/24/24 17:44 Complete Blood Count AUTO DIFF Stat Comprehensive Metabolic Panel Stat Lipase Stat Magnesium Stat NT-proBNP (BNP-Adult 18+) Stat PTT Partial Thromboplastin Paul Stat Prothrombin Time INR Stat Troponin & CK Cardiac Panel Stat 03/24/24 19:19 CT head/brain wo con Stat 03/24/24 19:50 Respiratory Panel (Film Array) Stat Discontinued Medications Aspirin (Aspirin 81 Mg Chew Tab) 324 mg PO NOW ONE Stop: 03/24/24 17:25 Last Admin: 03/24/24 20:05 Dose: Not Given Documented By: Diphenhydramine HCl (Diphenhydramine 50 Mg/Ml Vial) 50 mg IV NOW ONE Stop: 03/24/24 19:21 Last Admin: 03/24/24 19:38 Dose: 50 mg Documented By: Sodium Chloride (Normal Saline 0.9%) 1,000 mls @ 1,000 mls/hr IV BOLUS ONE Stop: 03/24/24 20:19 Last Infusion: 03/24/24 20:38 Dose: Infused Documented By: Admin: 03/24/24 19:38 Dose: 1,000 mls/hr Documented By: Ketorolac Tromethamine (Ketorolac 30 Mg/Ml Vial) 15 mg IV NOW ONE Stop: 03/24/24 19:21 Last Admin: 03/24/24 19:37 Dose: 15 mg Documented By: Metoclopramide HCl (Metoclopramide 10 Mg/2 Ml Inj) 10 mg IV NOW ONE Stop: 03/24/24 19:21 Last Admin: 03/24/24 19:38 Dose: 10 mg Documented By: Vital Signs Vital signs: Vital Signs - 8 hr 03/24/24 18:11 03/24/24 18:13 03/24/24 18:13 Temperature Pulse Rate 87 83 Respiratory Rate 19 Blood Pressure 143/86 H Pulse Oximetry 99 98 Oxygen Delivery Method 03/24/24 18:30 03/24/24 18:30 03/24/24 19:00 Temperature Pulse Rate 81 80 Respiratory Rate 37 H Blood Pressure 142/78 H Pulse Oximetry 97 94 Oxygen Delivery Method Room Air 03/24/24 19:05 03/24/24 19:05 03/24/24 19:42 Temperature Pulse Rate 78 77 Respiratory Rate Blood Pressure 129/76 Pulse Oximetry 96 97 Oxygen Delivery Method 03/24/24 19:43 03/24/24 19:43 03/24/24 20:00 Temperature Pulse Rate 76 Respiratory Rate Blood Pressure 138/82 116/73 Pulse Oximetry 97 Oxygen Delivery Method Room Air 03/24/24 20:00 03/24/24 20:30 03/24/24 20:30 Temperature Pulse Rate 70 66 Respiratory Rate Blood Pressure 126/74 Pulse Oximetry 97 98 Oxygen Delivery Method 03/24/24 21:00 03/24/24 21:00 03/24/24 21:30 Temperature Pulse Rate 63 Respiratory Rate Blood Pressure 125/78 117/70 Pulse Oximetry 98 Oxygen Delivery Method 03/24/24 21:30 03/24/24 22:00 03/24/24 22:00 Temperature Pulse Rate 64 68 Respiratory Rate Blood Pressure 118/70 Pulse Oximetry 97 99 Oxygen Delivery Method 03/24/24 22:32 Temperature 98.4 F Pulse Rate 66 Respiratory Rate 16 Blood Pressure 134/75 Pulse Oximetry 98 Oxygen Delivery Method Room Air MDM - Chest Pain Lab Data 03/24/24 17:44 03/24/24 17:44 Labs: Lab Results 03/24/24 03/24/24 Range/Units 17:44 19:50 WBC 9.7 (4.5-11.0) X10^3/uL RBC 5.26 H (4.0-5.2) X10^6/uL Hgb 15.9 (12.0-16.0) g/dL Hct 46.2 H (36-46) % MCV 87.9 (80-100) fL MCH 30.3 (26-34) PG MCHC 34.4 (30-36) % RDW 13.1 (11.6-14.8) % Plt Count 368 (150-400) X10^3/uL Neut % (Auto) 61.6 (50-75) % Lymph % (Auto) 25.3 (25-40) % Moffat % (Auto) 9.5 (3-14) % Eos % (Auto) 2.8 (2-4) % Baso % (Auto) 0.8 (0-2) % Neut # (Auto) 6000 (0574-8130) /uL Lymph # (Auto) 2500 (0091-6729) /uL Moffat # (Auto) 900 (0-900) /uL Eos # (Auto) 300 (0-450) /uL Baso # (Auto) 100 (0-100) /uL PT 11.2 (9.4-12.5) SECONDS INR 1.0 (0.9-1.3) APTT 45 H (25.1-36.5) SECONDS Sodium 140 (137-145) mmol/L Potassium 3.7 (3.4-5.1) mmol/L Chloride 104 (98-107) mmol/L Carbon Dioxide 26 (22-32) mmol/L BUN 17 (7-17) mg/dL Creatinine 1.21 H (0.52-1.04) mg/dL Estimated GFR 52 L (>60) mL/min BUN/Creatinine Ratio 14.0 (6-22) Glucose 122 H (70-100) mg/dL Calcium 9.5 (8.4-10.2) mg/dL Magnesium 2.0 (1.6-2.3) mg/dL Total Bilirubin 0.8 (0.2-1.3) mg/dL AST 75 H (14-36) IU/L ALT 76 H (<35) IU/L Alkaline Phosphatase 96 (38-126) U/L Total Creatine Kinase 162 H (30-135) U/L Troponin I < 0.012 (0.01-0.034) ng/mL NT-Pro-B Natriuret Pep 174 H (<125) pg/mL Total Protein 8.2 (6.3-8.2) g/dL Albumin 4.9 (3.5-5.0) g/dL Globulin 3.3 (1.7-4.1) g/dL Albumin/Globulin Ratio 1.5 (1.0-2.8) Lipase 141 (23-300) U/L Chlamy pneumoniae PCR Not detected (Not Detect) Adenovirus (PCR) Not detected (Not Detect) B. pertussis DNA (PCR) Not detected (Not Detect) B.parapertussis DNA PCR Not detected (Not Detecte) Coronavirus OC43 (PCR) Not detected (Not Detect) Coronavirus HKU1 (PCR) Not detected (Not Detect) Coronavirus 229E (PCR) Not detected (Not Detect) SARS-CoV-2 (PCR) Not detected (Not Detecte) Coronavirus NL63 (PCR) Not detected (Not Detect) Human Metapneumovir PCR Not detected (Not Detect) Influenza Type A (PCR) Not detected (Not Detect) Influenza Type B (PCR) Not detected (Not Detect) M. pneumoniae (PCR) Not detected (Not Detect) Parainfluenza 1 (PCR) Not detected (Not Detect) Parainfluenza 2 (PCR) Not detected (Not Detect) Parainfluenza 3 (PCR) Not detected (Not Detect) Parainfluenza 4 (PCR) Not detected (Not Detect) RSV (PCR) Not detected (Not Detect) Entero/Rhino (PCR) Not detected (Not Detect) Imaging Data Chest x-ray: Radiologist's Impression: PROCEDURE: XR CHEST 1V INDICATIONS: chest pain TECHNIQUE: One view of the chest was acquired. COMPARISON: [facility], XR CHEST 1V, 03/17/2024, 14:28. FINDINGS: Surgical changes and devices: None. Lungs and pleura: Lungs are clear. No pleural effusions or pneumothorax. Mediastinum: Mediastinal contours appear normal. Heart size is normal. Bones and chest wall: No suspicious bony lesions. Overlying soft tissues appear unremarkable. IMPRESSION: No acute cardiopulmonary pathology. Dictated by: Nacho Montano M.D. on 03/24/2024 at 18:04 Approved by: Nacho Montano M.D. on 03/24/2024 at 18:04 CT scan - head: Radiologist's Impression: PROCEDURE: CT HEAD/BRAIN WO CON INDICATIONS: gen weakness, headache TECHNIQUE: Noncontrast 4.5 mm thick angled axial sections acquired from the foramen magnum to the vertex, with coronal and sagittal reformats. For radiation dose reduction, the following was used: automated exposure control, adjustment of mA and/or kV according to patient size. COMPARISON: None. FINDINGS: Image quality: Diagnostic. CSF spaces: Basal cisterns are patent. No extra-axial fluid collections. Ventricles are normal in size and shape. Brain: No midline shift. Cavum septum pellucidum and vergae is noted which is a normal variant. No intracranial masses or hemorrhage. Hay-white matter interface is normal. Skull and face: Calvarium and visualized facial bones are intact, without suspicious lesions. Sinuses: Visualized sinuses and mastoids are clear. IMPRESSION: No acute intracranial pathology. Dictated by: Nacho Montano M.D. on 03/24/2024 at 19:40 Approved by: Nacho Montano M.D. on 03/24/2024 at 19:41 [facility] Narrative Medical decision making narrative: Well-appearing patient with persistent symptoms. 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 Patient today states that she was concerned that she may have meningitis. She has full and complete movement of her neck, normal mental status, no fever. I have no suspicion for meningitis at this time. Because of the complaint of headache a CT brain will be ordered. Repeat laboratory work drawn. Labs reviewed. Slight bump in creatinine, probably from decreased po intake. Other labs not significantly changed from prior. No arrhythmia seen on telemetry. CT brain, CXR negative for acute findings. Patient reports that her headache is resolved after headache cocktail. Patient was strongly advised to continue discussion with her primary care doctor about investigation of her symptoms. Discharge Plan Departure Patient Disposition: Home Clinical Impression: Weakness, Headache Instructions: DI for Headache, DI for Muscle Weakness Activity Restrictions/Additional Instructions: Your laboratory work and imaging today including a CT of your brain was normal. If you continue to experience symptoms I would recommend following up with your primary care doctor. Prescriptions: No Action estradiol [Yuvafem] 10 mcg tablet 10 mcg VAG 2XW levothyroxine 125 mcg tablet 125 mcg PO DAILY Qty: 60 0RF metoprolol tartrate 25 mg tablet 25 mg PO BID PRN (Reason: palpitation) Qty: 30 0RF Referrals: Sherry Santos MD [Primary Care Provider] - Stand Alone Forms: Patient Portal/API
--- NOTE | 2024-03-24 19:19 | DI.CT.S_ITS ---
PROCEDURE: CT HEAD/BRAIN WO CON INDICATIONS: gen weakness, headache TECHNIQUE: Noncontrast 4.5 mm thick angled axial sections acquired from the foramen magnum to the vertex, with coronal and sagittal reformats. For radiation dose reduction, the following was used: automated exposure control, adjustment of mA and/or kV according to patient size. COMPARISON: None. FINDINGS: Image quality: Diagnostic. CSF spaces: Basal cisterns are patent. No extra-axial fluid collections. Ventricles are normal in size and shape. Brain: No midline shift. Cavum septum pellucidum and vergae is noted which is a normal variant. No intracranial masses or hemorrhage. Hay-white matter interface is normal. Skull and face: Calvarium and visualized facial bones are intact, without suspicious lesions. Sinuses: Visualized sinuses and mastoids are clear. IMPRESSION: No acute intracranial pathology. Dictated by: Nacho Montano M.D. on 03/24/2024 at 19:40 Approved by: Nacho Montano M.D. on 03/24/2024 at 19:41
[2024-03-24] MEDS: KETOROLAC 30 MG/ML VIAL 15 MG IV (19:37)
[2024-03-24] MEDS: SODIUM CHLORIDE 0.9% 1,000 ML 1000 ML IV (19:38)
[2024-03-24] MEDS: METOCLOPRAMIDE 10 MG/2 ML INJ IV (19:38)
[2024-03-24] MEDS: diphenhydrAMINE 50 MG/ML VIAL IV (19:38)
[2024-03-24 21:42] LABS: Adenovirus Not Detected (Not Detect); B. parapertussis Not Detected (Not Detecte); Bordetella pertussis Not Detected (Not Detect); Chlamydophila pneumoniae Not Detected (Not Detect); Coronavirus 229E Not Detected (Not Detect); Coronavirus HKU1 Not Detected (Not Detect); Coronavirus NL 63 Not Detected (Not Detect); Coronavirus OC43 Not Detected (Not Detect); Human Metapneumovirus Not Detected (Not Detect); Human Rhinovirus/Enterovirus Not Detected (Not Detect); Influenza A Not Detected (Not Detect); Influenza B Not Detected (Not Detect); Mycoplasma pneumoniae Not Detected (Not Detect); Parainfluenza Virus 1 Not Detected (Not Detect); Parainfluenza Virus 2 Not Detected (Not Detect); Parainfluenza Virus 3 Not Detected (Not Detect); Parainfluenza Virus 4 Not Detected (Not Detect); Respiratory Syncytial Virus Not Detected (Not Detect); SARS- CoV-2 Not Detected (Not Detecte)
== END 2024-03-24 22:33 | disposition home or self-care (01) ==
PROVIDERS: Emergency Medicine; Emergency Provider Emergency Medicine; Family Provider Physician Assistant; PCP Student in an Organized Health Care Education/Training Program
DX: R53.1 Weakness (principal); R51.9 Headache, unspecified; R07.9 Chest pain, unspecified; R00.2 Palpitations; Z11.52 Encounter for screening for COVID-19
CPT/HCPCS: 36415; 70450; 71045; 80053; 82550; 83690; 83735; 83880; 84484; 85025; 85610; 85730; 87633; 93005; 93010; 96361; 96374; 96375; 99284; J1200; J1885; J2765

== ENCOUNTER → 2024-04-14 15:01 | Outpatient (CLI) | payer OTHER, SELFPAY | LOC: CAR 15:02 | PROVIDERS: Family Provider Physician Assistant; PCP Student in an Organized Health Care Education/Training Program; Referring Provider Student in an Organized Health Care Education/Training Program; Visit Provider Student in an Organized Health Care Education/Training Program | DX: R00.2 Palpitations (principal) | CPT/HCPCS: 93246 ==

== ENCOUNTER → 2024-04-28 11:19 | Outpatient (CLI) | payer OTHER, SELFPAY ==
[2024-04-28 12:29] LABS: Add Manual Diff / Slide Review NO; Basophils Absolute Auto 100 /uL (0-100); Eosinophils Absolute Auto 200 /uL (0-450); Eosinophils Percent Auto 3.5 % (2-4); Hematocrit 46.5 % (36-46); Hemoglobin 15.9 g/dL (12.0-16.0); Lymphocytes Absolute Auto 2100 /uL (1100-4500); Lymphocytes Percent Auto 29.2 % (25-40); Mean Corpuscular HGB Conc 34.1 % (30-36); Mean Corpuscular Hemoglobin 30.5 PG (26-34); Mean Corpuscular Volume 89.3 fL (80-100); Monocytes Absolute Auto 800 /uL (0-900); Neutrophils Absolute Auto 3900 /uL (1500-7000); Neutrophils Percent Auto 55.3 % (50-75); Platelet Count 386 X10^3/uL (150-400); Red Blood Cell Count 5.21 X10^6/uL (4.0-5.2); Red Cell Distribution Width 13.1 % (11.6-14.8); White Blood Cell Count 7.1 X10^3/uL (4.5-11.0)
[2024-04-28 12:49] LABS: HEMOLYSIS < 15 (0-50); Iron 116 ug/dL (37-170)
[2024-04-28 12:50] LABS: Alanine Aminotransferase 44 IU/L (<35); Albumin 4.6 g/dL (3.5-5.0); Albumin Globulin Ratio 1.5 (1.0-2.8); Alkaline Phosphatase 97 U/L (38-126); Aspartate Aminotransferase 47 IU/L (14-36); BUN Creatinine Ratio 23.7 (6-22); Bilirubin Total 0.9 mg/dL (0.2-1.3); Blood Urea Nitrogen 23 mg/dL (7-17); Calcium 9.8 mg/dL (8.4-10.2); Carbon Dioxide 25 mmol/L (22-32); Chloride 105 mmol/L (98-107); Estimated Glomerular Filt Rate > 60 mL/min (>60); Globulin 3.1 g/dL (1.7-4.1); Glucose 97 mg/dL (70-100); HEMOLYSIS < 15 (0-50); Potassium 3.8 mmol/L (3.4-5.1); Sodium 139 mmol/L (137-145); Total Protein 7.7 g/dL (6.3-8.2)
[2024-04-28 13:01] LABS: Percent Iron Saturation 29 % (15-50); Total Iron Binding Capacity 395 ug/dL (265-497); Transferrin 323 mg/dL (206-381)
[2024-04-28 13:24] LABS: Ferritin 45 ng/mL (11-264)
[2024-04-29 01:36] LABS: HBsAg Screen Negative (Negative); Hepatitis A Antibody IgM Negative (Negative); Hepatitis B Core Antibody IgM Negative (Negative); Hepatitis C Antibody Non Reactive (Non Reactive)
[2024-04-29 05:15] LABS: Alpha 1 Anti Trypsin 144 mg/dL (101-187); Ceruloplasmin 25.5 mg/dL (19.0-39.0)
[2024-04-29 15:36] LABS: Hep C Virus Ab w/Reflex Quant NEGATIVE s/c (NEGATIVE)
[2024-04-30 16:08] LABS: Anti Mitochondrial ABY IGG <20.0 Units (0.0-20.0); Smooth Muscle Antibody 5 Units (0-19)
[2024-04-30 18:08] LABS: ANA Screen, IFA Negative (.)
[2024-04-30 20:36] LABS: Deamidated Gliadin Ab IgA 3 units (0-19); Deamidated Gliadin Ab IgG 3 units (0-19); Immunoglobulin A,Qn 199 mg/dL (87-352); t-Transglutaminase IgA <2 U/mL (0-3)
== END ==
PROVIDERS: Family Provider Physician Assistant; PCP Student in an Organized Health Care Education/Training Program; Referring Provider Student in an Organized Health Care Education/Training Program; Visit Provider Student in an Organized Health Care Education/Training Program
DX: R79.89 Other specified abnormal findings of blood chemistry (principal); D59.9 Acquired hemolytic anemia, unspecified; R00.2 Palpitations; R74.01 Elevation of levels of liver transaminase levels; R53.83 Other fatigue; F51.9 Sleep disorder not due to a substance or known physiological condition, unspecified
CPT/HCPCS: 36415; 80053; 80074; 82103; 82390; 82728; 82784; 83516; 83540; 83550; 85025; 86015; 86038; 86803

== ENCOUNTER → 2024-05-05 16:21 | Outpatient (CLI) | payer OTHER, SELFPAY ==
--- NOTE | 2024-05-05 16:22 | DI.MG.S_ITS ---
BILATERAL DIGITAL SCREENING MAMMOGRAM 3D/2D WITH CAD: 05/05/2024 CLINICAL: Routine screening. Family history of breast cancer. Comparison is made to exams dated: 04/11/2016 mammogram, 04/12/2014 mammogram, and 03/29/2013 mammogram - [facility]. There are scattered areas of fibroglandular density (category b / 25%-50% glandular tissue). Current study was also evaluated with a Computer Aided Detection (CAD) system. There are benign post operative findings and biopsy clip in the right breast. There also are benign post operative findings in the left breast. No significant masses, calcifications, or other findings are seen in either breast. There has been no significant interval change. IMPRESSION: BENIGN There is no mammographic evidence of malignancy. A 1 year screening mammogram is recommended. Based on the Tyrer Cuzick model (a risk assessment model) the patient's lifetime risk is 16.7% and her 10 year risk is 6.6%. According to the ACR, ACS, and NCCN guidelines, an annual breast MRI exam along with mammogram is recommended if the patient's lifetime risk is 20% or greater. This exam was interpreted at Station ID: [id number]. NOTE: For mammograms, a report in lay terms will be sent to the patient. Approximately 15% of breast malignancies will not be visualized mammographically. In the management of a palpable breast mass, a negative mammogram must not discourage biopsy of a clinically suspicious lesion. Electronically Signed By: Dory Owusu M.D., Ph.D. [email or web address]/[email or web address]:05/06/2024 08:41:02 letter sent: Normal Exam ACR BI-RADS Category 2: Benign
--- NOTE | 2024-05-05 16:22 | DI.US.S_ITS ---
PROCEDURE: US ABDOMEN LIMITED INDICATIONS: elevated lfts TECHNIQUE: Real-time focused scanning was performed of the abdomen, with image documentation. COMPARISON: [facility], US, US ABDOMEN COMPLETE, 11/17/2023, 13:02. FINDINGS: The liver demonstrates slightly decreased right hepatic lobe size at 12.6 cm. Diffusely increased parenchymal echogenicity. Smooth liver margin. No discrete liver masses. The gallbladder is contracted. The patient was not NPO. No biliary dilatation. The common duct is 5 mm. The visible portions of the pancreas are normal. No peripancreatic fluid. No ductal dilatation. IMPRESSION: Diffuse hepatic hyper echogenicity suggesting steatosis or other intrinsic liver disease. Finding is similar the prior exam. No new liver lesions seen. Dictated by: Sophie Hodges M.D. on 05/06/2024 at 0:44 Approved by: Sophie Hodges M.D. on 05/06/2024 at 0:46
== END ==
PROVIDERS: Family Provider Physician Assistant; PCP Student in an Organized Health Care Education/Training Program; Referring Provider Student in an Organized Health Care Education/Training Program; Visit Provider Student in an Organized Health Care Education/Training Program
DX: Z12.31 Encounter for screening mammogram for malignant neoplasm of breast (principal); Z80.3 Family history of malignant neoplasm of breast; R79.89 Other specified abnormal findings of blood chemistry
CPT/HCPCS: 76705; 77063; 77067

== ENCOUNTER → 2024-07-08 10:02 | Outpatient (CLI) | payer OTHER, SELFPAY ==
[2024-07-08 10:35] LABS: Appearance Urine UA CLEAR; Bilirubin Urine UA NEGATIVE (NEGATIVE); Color Urine UA YELLOW; Glucose Urine UA NEGATIVE (Negative); Ketones Urine UA NEGATIVE (NEGATIVE); Leukocyte Esterase Urine UA NEGATIVE (NEGATIVE); Nitrite Urine UA NEGATIVE (Negative); Occult Blood Urine UA NEGATIVE (Negative); Protein Urine UA NEGATIVE (Negative); Specific Gravity Urine UA <=1.005 (1.000-1.035); Urobilinogen Urine UA 0.2 E.U./dL (0.2)
[2024-07-08 10:50] LABS: Bacteria Urine None Seen; RBC Urine 0-1/HPF (0-5/HPF); Urine Volume 10mL (spun); WBC Urine 0-1/HPF (0-5/HPF)
[2024-07-08 10:51] LABS: Culture Indicated Urine Cult Not Indicated; Squamous Epithelial Cell Urine 0-1 /HPF (0-5/HPF)
[2024-07-08 11:16] LABS: Alanine Aminotransferase 53 IU/L (<35); Albumin 4.6 g/dL (3.5-5.0); Albumin Globulin Ratio 1.6 (1.0-2.8); Alkaline Phosphatase 83 U/L (38-126); Aspartate Aminotransferase 54 IU/L (14-36); BUN Creatinine Ratio 17.6 (6-22); Bilirubin Total 0.9 mg/dL (0.2-1.3); Blood Urea Nitrogen 18 mg/dL (7-17); Calcium 9.9 mg/dL (8.4-10.2); Carbon Dioxide 32 mmol/L (22-32); Chloride 101 mmol/L (98-107); Estimated Glomerular Filt Rate > 60 mL/min (>60); Globulin 2.9 g/dL (1.7-4.1); Glucose 97 mg/dL (70-100); HEMOLYSIS < 15 (0-50); Potassium 3.5 mmol/L (3.4-5.1); Sodium 140 mmol/L (137-145); Total Protein 7.5 g/dL (6.3-8.2)
[2024-07-08 11:32] LABS: Free T3, Triiodothyronine Free 3.73 pg/mL (2.77-5.27); Free T4, Direct Thyroxine 1.67 ng/dL (0.78-2.19)
[2024-07-08 11:46] LABS: Thyroid Stimulating Hormone 0.211 uIU/mL (0.47-4.68)
== END ==
LOC: LAB 10:03
PROVIDERS: Family Provider Physician Assistant; PCP Student in an Organized Health Care Education/Training Program; Referring Provider Student in an Organized Health Care Education/Training Program; Visit Provider Student in an Organized Health Care Education/Training Program
DX: E03.9 Hypothyroidism, unspecified (principal); R79.89 Other specified abnormal findings of blood chemistry; R53.1 Weakness
CPT/HCPCS: 36415; 80053; 81001; 84439; 84443; 84481